=== PATIENT | female | born 1950 | race Caucasian/White ===

== ENCOUNTER 2017-07-24 14:15 | Emergency (ER) | payer MEDICARE ==
[2017-07-24 14:45] VITALS: BP 107/57; PULSE 66; RESP 18; TEMP 98.1; O2SAT 98
--- NOTE | 2017-07-24 14:54 | ED PDOC ---
Upper Extremity Pain/Injury Time Seen by Provider: 07/24/17 14:51 Chief Complaint (Nursing): Upper Extremity Problem/Injury Chief Complaint (Provider): arm pain History Per: Patient Additional Complaint(s): 67-year-old female presents to emergency department with right arm infection. Patient states for 1-1/2 months she has noticed redness and drainage to right elbow region. She denies fever or chills. Patient states that today is the first time she is seeking medical attention for this ongoing issue. She has slight localized pain to affected area not relieved by Aleve. Patient denies any trauma to affected area. PMD: Dr. Osorio Past Medical History Reviewed: Historical Data, Nursing Documentation, Vital Signs Vital Signs: Last Vital Signs Temp 98.1 F 07/24/17 14:40 Pulse 66 07/24/17 14:40 Resp 18 07/24/17 14:40 BP 107/57 L 07/24/17 14:40 Pulse Ox 98 07/24/17 14:40 - Medical History PMH: CAD, CHF, HTN - Family History Family History: States: No Known Family Hx - Living Arrangements Living Arrangements: With Family - Social History Current smoker - smoking cessation education provided: Yes Alcohol: None Drugs: Denies - Home Medications Home Medications: Ambulatory Orders Medication Instructions Recorded Atenolol [Atenolol] 25 mg PO DAILY 10/14/14 Atorvastatin Calcium [Lipitor] 20 mg PO DAILY 10/14/14 Furosemide [Lasix] 20 mg PO DAILY #5 tab 10/14/14 Furosemide [Lasix] 20 mg PO DAILY PRN 10/14/14 Lisinopril [Lisinopril] 10 mg PO DAILY 10/14/14 Omeprazole [Prilosec] 20 mg PO DAILY 10/14/14 Clindamycin [Cleocin] 1 tab PO QID #28 cap 07/24/17 Sulfamethoxazole/Trimethoprim 1 tab PO BID #14 tab 07/24/17 [Bactrim DS 800 mg-160 mg] traMADol [Ultram] 50 mg PO TID PRN #15 tab 07/24/17 - Allergies Allergies/Adverse Reactions: Allergies Allergy/AdvReac Type Severity Reaction Status Date / Time No Known Allergies Allergy Verified 07/24/17 14:44 Review of Systems ROS Statement: Except As Marked, All Systems Reviewed And Found Negative Constitutional: Negative for: Fever, Chills Skin: Positive for: Other (right arm infection) Physical Exam - Reviewed Nursing Documentation Reviewed: Yes Vital Signs Reviewed: Yes - Physical Exam Appears: Positive for: Well, Non-toxic, No Acute Distress Skin: Negative for: Rash Eye Exam: Positive for: Normal appearance Cardiovascular/Chest: Positive for: Regular Rate, Rhythm Respiratory: Positive for: Normal Breath Sounds Extremity: Positive for: Other (Cluster of actively draining superficial abscesses noted to right proximal forearm and elbow region with mild localized erythema, no erythematous streaking, mildly tender to palpation, full range of motion of right elbow, 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 Plan: Initial doses Bactrim and clindamycin provided Tylenol and tramadol given for pain relief Patient given prescriptions for Bactrim, clindamycin and tramadol. Wound care instructions provided. Disposition - Clinical Impression Clinical Impression: Cellulitis, Abscess - Patient ED Disposition Is Patient to be Admitted: No Counseled Patient/Family Regarding: Diagnosis, Need For Followup, Rx Given, Smoking Cessation - Disposition Referrals: Torito Osorio MD [Family Provider] - Disposition: Routine/Home Disposition Time: 15:37 Condition: STABLE Additional Instructions: APPLY WARM COMPRESSES WITH EPSOM SALTS TO AFFECTED AREA OFTEN POSSIBLE. TAKE RX MEDS DIRECTED. WOUND RE-CHECK IN 2 DAYS OR RETURN SOONER IF ACUTELY WORSE. Prescriptions: Clindamycin [Cleocin] 1 tab PO QID #28 cap Sulfamethoxazole/Trimethoprim [Bactrim DS 800 mg-160 mg] 1 tab PO BID #14 tab traMADol [Ultram] 50 mg PO TID PRN #15 tab PRN Reason: Pain, Moderate (4-7) Instructions: Cellulitis (ED), Abscess (ED) Forms: [employer] (Tajik)
[2017-07-24] MEDS ORDERED: Tmp-Smz 800 mg-160 mg DS Tab PO STA (15:06)
[2017-07-24] MEDS ORDERED: Tmp-Smz 800 mg-160 mg DS Tab ONE (15:52)
== END 2017-07-24 16:41 | disposition home or self-care (01) ==
LOC: H.ER 14:15
DX: L02.413 Cutaneous abscess of right upper limb (principal); I11.0 Hypertensive heart disease with heart failure; I25.10 Atherosclerotic heart disease of native coronary artery without angina pectoris

== ENCOUNTER 2017-07-25 19:09 | Emergency (ER) | payer MEDICARE ==
[2017-07-25 20:31] VITALS: BP 103/52; PULSE 63; RESP 16; TEMP 97.5; O2SAT 100
--- NOTE | 2017-07-26 01:38 | ED PDOC ---
HPI: General Adult Time Seen by Provider: 07/25/17 21:33 Chief Complaint (Nursing): Allergic Reaction Chief Complaint (Provider): Reaction to Medication History Per: Patient History/Exam Limitations: no limitations Onset/Duration Of Symptoms: Days (x1) Current Symptoms Are (Timing): Still Present Additional Complaint(s): 67 year old female presents to ED with complaints of a reaction to medication x1 day and was seen yesterday in the ED for cellulitis of the right forearm. Notes that she was discharged with Bactrim and Clindamycin. States that Clindamycin is making her nauseous. (+) vomiting. (-) fever, (-) chills, (-) increase in redness, pain or swelling of right forearm. PCP: Torito Osorio V Past Medical History Reviewed: Historical Data, Nursing Documentation, Vital Signs Vital Signs: Last Vital Signs Temp 97.5 F L 07/25/17 20:25 Pulse 63 07/25/17 20:25 Resp 16 07/25/17 20:25 BP 103/52 L 07/25/17 20:25 Pulse Ox 100 07/26/17 01:46 - Medical History PMH: CAD, CHF, HTN - Family History Family History: States: Unknown Family Hx - Living Arrangements Living Arrangements: With Family - Home Medications Home Medications: Ambulatory Orders Medication Instructions Recorded Atenolol [Atenolol] 25 mg PO DAILY 10/14/14 Atorvastatin Calcium [Lipitor] 20 mg PO DAILY 10/14/14 Furosemide [Lasix] 20 mg PO DAILY #5 tab 10/14/14 Furosemide [Lasix] 20 mg PO DAILY PRN 10/14/14 Lisinopril [Lisinopril] 10 mg PO DAILY 10/14/14 Omeprazole [Prilosec] 20 mg PO DAILY 10/14/14 Clindamycin [Cleocin] 1 tab PO QID #28 cap 07/24/17 Sulfamethoxazole/Trimethoprim 1 tab PO BID #14 tab 07/24/17 [Bactrim DS 800 mg-160 mg] traMADol [Ultram] 50 mg PO TID PRN #15 tab 07/24/17 Cephalexin [Keflex] 500 mg PO Q6 #28 capsule 07/25/17 Ondansetron ODT [Zofran ODT] 4 mg PO DAILY PRN #20 odt 07/25/17 - Allergies Allergies/Adverse Reactions: Allergies Allergy/AdvReac Type Severity Reaction Status Date / Time No Known Allergies Allergy Verified 07/25/17 20:31 Review of Systems ROS Statement: Except As Marked, All Systems Reviewed And Found Negative Constitutional: Negative for: Fever, Chills Gastrointestinal: Positive for: Nausea, Vomiting Musculoskeletal: Negative for: Other ((-) increase in redness or swelling to right forearm) Physical Exam - Reviewed Nursing Documentation Reviewed: Yes Vital Signs Reviewed: Yes - Physical Exam Appears: Positive for: Well, Non-toxic Skin: Positive for: Normal Color, Warm, Dry Respiratory: Negative for: Respiratory Distress Extremity: Positive for: Swelling (area of erythema and edema on medial aspect of right forearm. warm to touch). Negative for: Deformity Neurologic/Psych: Positive for: Alert, Oriented. Negative for: Motor/Sensory Deficits - ECG O2 Sat by Pulse Oximetry: 100 (RA) Pulse Ox Interpretation: Normal Medical Decision Making Medical Decision Making: Doses of Keflex and Zofran given in ED. Advised patient to discontinue Clindamycin and continue Bactrim. Keflex will be prescribed in place of Clindamycin. Dispo: Based on history, exam and diagnostic results plan will be for outpt f/u w/ Dx of cellulitis. Dx of cellulitis d/w the pt. Adult discharge: Advised to follow up with primary care physician in 1-2 days without fail. Advised to take medication as prescribed. Return to the emergency room at any time for any new or worsening symptoms. Patient states she fully agrees with and understands discharge instructions. States that she agrees with the plan and disposition. Verbalized and repeated discharge instructions and plan. I have given the patient opportunity to ask any additional questions. Scribe Attestation: Documented by Sdyni Allen acting as a scribe for Bibiana Oconnell PA-C. Scribe Attestation: All medical record entries made by the Scribe were at my direction and personally dictated by me. I have reviewed the chart and agree that the record accurately reflects my personal performance of the history, physical exam, medical decision making, and the department course for this patient. I have also personally directed, reviewed, and agree with the discharge instructions and disposition. Disposition - Clinical Impression Clinical Impression: Cellulitis - Patient ED Disposition Is Patient to be Admitted: No Counseled Patient/Family Regarding: Diagnosis, Need For Followup, Rx Given - Disposition Disposition: Routine/Home Disposition Time: 22:09 Condition: STABLE Additional Instructions: Thank you for letting us take care of you today. You were treated for cellulitis. The emergency medical care you received today was directed at your acute symptoms. If you were prescribed any medication, please fill it and take as directed. It may take several days for your symptoms to resolve. Return to the Emergency Department if your symptoms worsen, do not improve, or if you have any other problems. Please contact your doctor in 2 days for re-evaluation and follow up. Bring any paperwork you were given at discharge with you along with any medications you are taking to your follow up visit. Our treatment cannot replace ongoing medical care by a primary care provider (PCP) outside of the emergency department. Thank you for allowing the [facility] team to be part of your care today. Prescriptions: Cephalexin [Keflex] 500 mg PO Q6 #28 capsule Ondansetron ODT [Zofran ODT] 4 mg PO DAILY PRN #20 odt PRN Reason: Nausea/Vomiting Instructions: Cellulitis (ED) Forms: [employer] (Serbian) - PA / SENIOR CARE ASSISTANT / Resident Statement MD/DO has reviewed & agrees with the documentation as recorded.
== END 2017-07-25 22:46 | disposition home or self-care (01) ==
LOC: H.ER 19:09
DX: T78.40XA Allergy, unspecified, initial encounter (principal); L03.113 Cellulitis of right upper limb

== ENCOUNTER 2017-08-05 10:47 | Emergency (ER) | payer MEDICARE ==
[2017-08-05 11:15] VITALS: TEMP 97
[2017-08-05] MEDS ORDERED: Piperacillin/Tazobact 3.375 GM in Sodium Chloride 0.9% 100 ML IVPB STA (11:22)
--- NOTE | 2017-08-05 11:33 | ED PDOC ---
HPI: General Adult Time Seen by Provider: 08/05/17 11:09 Chief Complaint (Nursing): Abnormal Skin Integrity History Per: Patient Additional Complaint(s): Pt. states ~2 months she's had pain, redness, and discharge from the R forearm. States that she is uncertain as to how she obtained the wound. She was seen in ED on 07/24/17 and prescribed Bactrim and Clindamycin. The following day she returned to ED as the Clindamycin caused her to be nauseous. Pt. states she was prescribed Keflex and finished today. Reports discharge is still present but has decreased along with erythema and swelling. Pt. is concerned she may need more antibiotics. Of note, pt. also stopped taking Bactrim. Denies fever, chest pain, SOB, palpitations, trauma, numbness, tingling. Past Medical History Reviewed: Historical Data, Nursing Documentation, Vital Signs Vital Signs: Last Vital Signs Temp 97 F L 08/05/17 11:11 Pulse 60 08/05/17 12:29 Resp 18 08/05/17 11:11 BP 105/67 08/05/17 11:11 Pulse Ox 97 08/05/17 12:29 - Medical History PMH: CAD, CHF, HTN - Family History Family History: States: No Known Family Hx - Home Medications Home Medications: Ambulatory Orders Medication Instructions Recorded Atenolol [Atenolol] 25 mg PO DAILY 10/14/14 Atorvastatin Calcium [Lipitor] 20 mg PO DAILY 10/14/14 Furosemide [Lasix] 20 mg PO DAILY #5 tab 10/14/14 Furosemide [Lasix] 20 mg PO DAILY PRN 10/14/14 Lisinopril [Lisinopril] 10 mg PO DAILY 10/14/14 Omeprazole [Prilosec] 20 mg PO DAILY 10/14/14 Clindamycin [Cleocin] 1 tab PO QID #28 cap 07/24/17 Sulfamethoxazole/Trimethoprim 1 tab PO BID #14 tab 07/24/17 [Bactrim DS 800 mg-160 mg] traMADol [Ultram] 50 mg PO TID PRN #15 tab 07/24/17 Cephalexin [Keflex] 500 mg PO Q6 #28 capsule 07/25/17 Ondansetron ODT [Zofran ODT] 4 mg PO DAILY PRN #20 odt 07/25/17 Doxycycline Hyclate [Doryx] 100 mg PO BID #14 cap 08/05/17 - Allergies Allergies/Adverse Reactions: Allergies Allergy/AdvReac Type Severity Reaction Status Date / Time No Known Allergies Allergy Verified 08/05/17 11:11 Review of Systems ROS Statement: Except As Marked, All Systems Reviewed And Found Negative Musculoskeletal: Positive for: Arm Pain Physical Exam - Physical Exam Appears: Positive for: Well, Non-toxic, No Acute Distress Skin: Positive for: Normal Color, Warm. Negative for: Rash Pulses-Radial (L): 2+ Pulses-Radial (R): 2+ Extremity: Positive for: Other (R posterior forearm with small draining wound; dry yellow discharge noted; faint erythema surrounding wound (imporved as per patient)) - Laboratory Results Result Diagrams: 08/05/17 11:42 08/05/17 11:42 - ECG ECG: Positive for: Interpreted By Me ECG Rhythm: Positive for: Sinus Rhythm. Negative for: ST/T Changes Rate: 60 O2 Sat by Pulse Oximetry: 97 - Radiology X-Ray: Interpreted by Me (R forearm x-ray) X-Ray Interpretation: No Acute Disease - Progress ED Course And Treament: Labs ordered. Zosyn IV, Vancomycin IV, R forearm x-ray, EKG ordered. 1225 Case d/w Dr. Crabtree who recommends CT of extremity to r/o abscess CT of R forearm IV contrast ordered. 1425 CT RUE w/ IV contrast: No abscess As per Dr. Crabtree, pt. can be dc'd with Rx for Doxycycline. Disposition - Clinical Impression Clinical Impression: Visit for wound check, Cellulitis - Patient ED Disposition Is Patient to be Admitted: No - Disposition Referrals: [facility] [Outside] Disposition: Routine/Home Disposition Time: 14:27 Condition: STABLE Additional Instructions: Follow up with [facility] in 2 days for wound check. Prescriptions: Doxycycline Hyclate [Doryx] 100 mg PO BID #14 cap Instructions: Wound Care (DC) Forms: [employer] (Bulgarian) Print Language: HONDURAN
[2017-08-05 11:56] LABS: BASO # 0.1 K/uL (0.0-0.2); BASO % 1.2 % (0.0-2.0); EOS # 0.8 K/uL (0.0-0.7); EOS % 7.3 % (0.0-4.0); HEMOGLOBIN 11.3 g/dL (12.0-16.0); LYMPH # 1.7 K/uL (1.0-4.3); MEAN CORPUSCULAR HEMOGLOBIN 31.4 pg (27.0-31.0); MEAN CORPUSCULAR HGB CONC 33.8 g/dL (33.0-37.0); MEAN PLATELET VOLUME 7.6 fl (7.2-11.7); MONO # 0.9 K/uL (0.0-0.8); MONO % 8.1 % (0.0-10.0); NEUT # 7.2 K/uL (1.8-7.0); NEUT % 67.4 % (50.0-75.0); NRBC % 0.1 % (0.0-0.0); RBC 3.6 Mil/uL (3.80-5.20); RED CELL DISTRIBUTION WIDTH 13.4 % (11.5-14.5); WHITE BLOOD COUNT 10.7 K/uL (4.8-10.8)
[2017-08-05] MEDS ORDERED: Piperacillin/Tazobact 3.375 gm Inj IVPB ONE (11:56)
[2017-08-05 11:57] LABS: VENOUS BLOOD GAS BASE EXCESS 7.3 mmol/L (0.0-2.0); VENOUS BLOOD GAS PCO2 45 mmHg (40-60); VENOUS BLOOD GAS PO2 23 mm/Hg (30-55); VENOUS BLOOD PH 7.46 (7.32-7.43)
[2017-08-05 12:08] LABS: ALB/GLOB RATIO 1.1 (1.0-2.1); ALBUMIN 3.8 g/dL (3.5-5.0); ALT/SGPT 26 U/L (9-52); AST/SGOT 45 U/L (14-36); BLOOD UREA NITROGEN 20 mg/dl (7-17); CALCIUM 9.6 mg/dL (8.4-10.2); GFR AFRICAN-AMERICAN > 60; GFR NON-AFRICAN AMERICAN 56
--- NOTE | 2017-08-05 12:15 | RAD ---
PROCEDURE: Radiographs of the Right Forearm HISTORY: pain COMPARISON: None available. TECHNIQUE: Frontal and lateral views obtained. FINDINGS: BONES: There is no acute displaced fracture or bone destruction. Bone alignment is normal. There is diffuse bone demineralization. JOINT SPACES: Unremarkable. OTHER FINDINGS: There are linear discrete calcifications in the dorsal soft tissues of the forearm and there are periarticular soft tissues in the elbow and wrist joint. IMPRESSION: No acute fracture or dislocation. Sheet like calcifications in the dorsal soft tissues of the forearm and periarticular soft tissue calcifications in the elbow and wrist joints. Findings could be related to dermatomyositis. Clinical correlation and follow-up is advised.
--- NOTE | 2017-08-05 14:20 | CT ---
PROCEDURE: Right Forearm CT without contrast HISTORY: ATTENTION R forearm COMPARISON: Right forearm radiographs 08/05/2017. TECHNIQUE: A volumetric CT acquisition through the right forearm was performed without intravenous contrast as requested. Reformatted datasets provided using sagittal axial and coronal technique. Radiation dose: Total exam DLP = 254.63 mGy-cm. This CT exam was performed using one or more of the following dose reduction techniques: Automated exposure control, adjustment of the mA and/or kV according to patient size, and/or use of iterative reconstruction technique. FINDINGS: No fracture or dislocation is appreciated on acute basis. A chronic healed fracture of the distal radius is appreciated with limited deformity identified. No subluxation identified. Diffuse osteopenia suggests osteoporosis. Evaluation of soft tissues reveals prominent heterotopic calcification at the dorsal greater than proximal volar soft tissues, particularly dorsal lateral to the right radius. Even more prominent soft tissue calcification is appreciated lateral to the wrist and distal right radius. Prominent soft tissue calcifications overlying the olecranon process extending cephalad to involve distal triceps tendon region as well. Consider probable inflammatory process chronic basis including potential enthesiopathy or autoimmune disorder. IMPRESSION: No acute fracture or dislocation identified. Chronic healed fracture distal right radius is appreciated with deformity as discussed above. Soft tissue calcifications are identified as distributed throughout the right forearm wrist and elbow. Consider possible enthesiopathy or other inflammatory process including autoimmune process.
[2017-08-05 15:25] VITALS: BP 130/72; PULSE 63; RESP 16; O2SAT 100
--- NOTE | 2017-08-05 21:17 | CARD ---
APPROVED REPORT EKG Measurement Heart [id number] MD [id number] <Conclusion> Normal sinus rhythm Lateral infarct, age undetermined Inferior-posterior infarct, age undetermined Abnormal ECG
== END 2017-08-05 15:31 | disposition home or self-care (01) ==
LOC: H.ER 10:47
DX: L03.113 Cellulitis of right upper limb (principal); I11.0 Hypertensive heart disease with heart failure; I25.10 Atherosclerotic heart disease of native coronary artery without angina pectoris
CPT/HCPCS: 73090; 73201; 80053; 82803; 85025; 87040; 87070; 93005; 96365; 96367; 99284; J2543; Q9967

== ENCOUNTER 2018-06-18 16:15 | Emergency (ER) | payer MEDICARE ==
[2018-06-18] MEDS ORDERED: Lidocaine 1% Inj (20ml) ONE (18:30)
--- NOTE | 2018-06-18 18:34 | ED PDOC ---
Upper Extremity Pain/Injury Time Seen by Provider: 06/18/18 18:25 Chief Complaint (Nursing): Finger,Hand,&Wrist Chief Complaint (Provider): Right Hand Pain History Per: Patient History/Exam Limitations: no limitations Onset/Duration Of Symptoms: Days Current Symptoms Are (Timing): Still Present Quality: "Pain" Additional Complaint(s): 68 year old female presents to the ED for an evaluation of infection to the 4th digit of her right hand. She states she banged her hand while washing dishes. Her fingernail is swollen and yellow. PMD: Non CPH Provider Past Medical History Reviewed: Historical Data, Nursing Documentation, Vital Signs - Medical History PMH: CAD, CHF, HTN - Family History Family History: States: Unknown Family Hx - Home Medications Home Medications: Ambulatory Orders Medication Instructions Recorded Atenolol 25 mg PO DAILY 10/14/14 Atorvastatin Calcium [Lipitor] 20 mg PO DAILY 10/14/14 Furosemide [Lasix] 20 mg PO DAILY #5 tab 10/14/14 Furosemide [Lasix] 20 mg PO DAILY PRN 10/14/14 Lisinopril 10 mg PO DAILY 10/14/14 Omeprazole [Prilosec] 20 mg PO DAILY 10/14/14 Clindamycin [Cleocin] 1 tab PO QID #28 cap 07/24/17 Sulfamethoxazole/Trimethoprim 1 tab PO BID #14 tab 07/24/17 [Bactrim DS 800 mg-160 mg] traMADol [Ultram] 50 mg PO TID PRN #15 tab 07/24/17 Cephalexin [Keflex] 500 mg PO Q6 #28 capsule 07/25/17 Ondansetron ODT [Zofran ODT] 4 mg PO DAILY PRN #20 odt 07/25/17 Doxycycline Hyclate [Doryx] 100 mg PO BID #14 cap 08/05/17 Ondansetron ODT [Zofran ODT] 4 mg PO TID #20 odt 08/05/17 oxyCODONE/Acetaminophen [Percocet 1 ea PO DAILY #2 tab 06/18/18 5/325 mg Tab] - Allergies Allergies/Adverse Reactions: Allergies Allergy/AdvReac Type Severity Reaction Status Date / Time No Known Allergies Allergy Verified 08/05/17 11:11 Review of Systems ROS Statement: Except As Marked, All Systems Reviewed And Found Negative Constitutional: Negative for: Fever, Chills Musculoskeletal: Positive for: Hand Pain (right ) Neurological: Negative for: Weakness, Numbness Physical Exam - Reviewed Nursing Documentation Reviewed: Yes Vital Signs Reviewed: Yes - Physical Exam Appears: Positive for: Well, Non-toxic, No Acute Distress Head Exam: Positive for: ATRAUMATIC, NORMAL INSPECTION, NORMOCEPHALIC Skin: Positive for: Normal Color, Warm, Dry. Negative for: Rash Cardiovascular/Chest: Positive for: Regular Rate, Rhythm. Negative for: Murmur Respiratory: Positive for: Normal Breath Sounds. Negative for: Decreased Breath Sounds, Wheezing, Respiratory Distress Extremity: Positive for: Swelling (on right 4th digit ), Other (On 4th digit of right hand, there is infection under the nail onto the nailbed, no tenderness over affected tendon, finger is not held in passive flexion ) Neurologic/Psych: Positive for: Alert, Oriented (x3) - ECG Pulse Ox Interpretation: Normal Medical Decision Making Medical Decision Making: Time: 1835 Initial Plan: Motrin 600mg Acetaminophen 650mg Reevaluation PROCEDURE: DIGITAL BLOCK Performed by the emergency provider Location: right 4th digit Preparation: The area was prepped and cleansed Procedure: 4cc lidocaine for digital block on right 4th digit to remove nail Post-Procedure: The patient tolerated the procedure well, and there were no complications. ----- Scribe Attestation: Documented by Giacomo Mendoza, acting as a scribe for Bossman Rowley PA-C. Provider Scribe Attestation: All medical record entries made by the Scribe were at my direction and personally dictated by me. I have reviewed the chart and agree that the record accurately reflects my personal performance of the history, physical exam, medical decision making, and the department course for this patient. I have also personally directed, reviewed, and agree with the discharge instructions and disposition. Disposition - Clinical Impression Clinical Impression: Finger infection - Patient ED Disposition Is Patient to be Admitted: No Doctor Will See Patient In The: Office Counseled Patient/Family Regarding: Studies Performed, Diagnosis, Need For Followup, Rx Given - Disposition Disposition: Routine/Home Disposition Time: 20:05 Condition: STABLE Additional Instructions: Follow up with your primary PMD in 4-5 days Take all medcation Keep wound clean and dry -- use mild soap and water to cleabn Take all antibiotics Return to ED in event of red streaking on affected hand or arm or fever > 100F Prescriptions: oxyCODONE/Acetaminophen [Percocet 5/325 mg Tab] 1 ea PO DAILY #2 tab Instructions: Wound Infection Forms: [employer] (Urdu)
[2018-06-18] MEDS ORDERED: Povidone Iodine Topical 10% Sol ONE (19:08)
[2018-06-18] MEDS ORDERED: Tmp-Smz 800 mg-160 mg DS Tab PO STA (19:25)
[2018-06-18] MEDS ORDERED: Bacitracin 500 Units/gm Oint Foilpak UD ONE (20:11)
[2018-06-18 20:18] VITALS: BP 126/85; PULSE 61; RESP 19; O2SAT 100
== END 2018-06-18 20:17 | disposition home or self-care (01) ==
LOC: H.ER 16:15
DX: L03.012 Cellulitis of left finger (principal)

== ENCOUNTER 2018-07-14 14:53 | Inpatient (IN) | payer MEDICARE ==
[2018-07-14 14:57] VITALS: BMI 18.1
--- NOTE | 2018-07-14 16:18 | ED PDOC ---
HPI: Wound Care - HPI Time Seen by Provider: 07/14/18 15:17 Chief Complaint (Nursing): Abnormal Skin Integrity Chief Complaint (Provider): Wound Care History Per: Patient Exam Limitations: no limitations Onset/Duration Of Symptoms: Days Current Symptoms Are (Timing): Still Present Additional Complaint(s): 68 y/o female with a PMHx of CHF presents to the ED after being sent here by Dr. Boateng for further evaluation of a wound. Patient reports of injuring her finger and being seen here on June 18, 2018. Patient states her fingernail was r emoved but never healed. Patient reports of finishing two courses of two unknown antibiotics without resolution. PMD: Fortunato Boateng Past Medical History Reviewed: Historical Data, Nursing Documentation, Vital Signs Vital Signs: Last Vital Signs Temp 97.8 F 07/14/18 14:57 Pulse 67 07/14/18 14:57 Resp 17 07/14/18 14:57 BP 103/64 07/14/18 14:57 Pulse Ox - Medical History PMH: CAD, CHF, HTN - Surgical History Surgical History: No Surg Hx - Family History Family History: States: Unknown Family Hx - Social History Current smoker - smoking cessation education provided: No - Home Medications Home Medications: Ambulatory Orders Medication Instructions Recorded Atorvastatin Calcium [Lipitor] 20 mg PO DAILY 10/14/14 Alprazolam [Xanax] 0.5 mg PO Q12 PRN 07/14/18 Multivitamin [Multi-Vitamin Daily] 1 tab PO DAILY 07/14/18 Sertraline [Zoloft] 50 mg PO HS 07/14/18 Aspirin [Aspirin Chewable] 81 mg PO DAILY #30 chew 07/18/18 Atorvastatin [Lipitor] 20 mg PO DAILY #30 tab 07/18/18 Furosemide [Lasix] 20 mg PO DAILY #30 tab 07/18/18 Losartan [Cozaar] 50 mg PO DAILY #30 tab 07/18/18 Metoprolol Succinate XL [Toprol XL] 25 mg PO DAILY #30 tab 07/18/18 Sulfamethoxazole/Trimethoprim 1 tab PO Q12 #28 tab 07/18/18 [Bactrim DS 800 mg-160 mg] oxyCODONE/Acetaminophen [Percocet 1 ea PO Q4 #30 tab 07/18/18 5/325 mg Tab] - Allergies Allergies/Adverse Reactions: Allergies Allergy/AdvReac Type Severity Reaction Status Date / Time No Known Allergies Allergy Verified 07/14/18 15:01 Review of Systems ROS Statement: Except As Marked, All Systems Reviewed And Found Negative Musculoskeletal: Positive for: Hand Pain (4th Finger Wound Care) Physical Exam - Reviewed Nursing Documentation Reviewed: Yes Vital Signs Reviewed: Yes - Physical Exam Appears: Positive for: Uncomfortable Extremity: Positive for: Tenderness (to palpation of the distal finger), Other (necrosis distal digits. no edema). Negative for: Normal ROM (Decreased ROM secondary to pain. ) - Laboratory Results Result Diagrams: 07/17/18 06:50 07/17/18 06:50 Medical Decision Making Medical Decision Making: Time: 152 Plan: -- CMP -- CBC with Differentials -- PTT -- Prothrombin Time -- Blood Culture Time: 155 Plan: -- Hand Right 3 Viwes XR Time: 1612 Plan: -- Vancomycin Inj 1 gm Sodium Chloride 0.9% 250 ml IVPB Scribe Attestation: Documented by Izaiah Kincaid, acting as a scribe for Luana Muller MD. Provider Scribe Attestation: All medical record entries made by the Scribe were at my direction and personally dictated by me. I have reviewed the chart and agree that the record accurately reflects my personal performance of the history, physical exam, medical decision making, and the department course for this patient. I have also personally directed, reviewed, and agree with the discharge instructions and disposition. Disposition - Clinical Impression Clinical Impression: Finger necrosis - Patient ED Disposition Is Patient to be Admitted: Yes - Disposition Disposition Time: 16:25 Condition: STABLE - Pt Status Changed To: Hospital Disposition Of: Inpatient - Admit Certification Admit to Inpatient:: After my assessment, the patient will require hospitalization for at least two midnights. This is because of the severity of symptoms shown, intensity of services needed, and/or the medical risk in this patient being treated as an outpatient. - POA Present On Arrival: None
--- NOTE | 2018-07-14 16:21 | CP.PCM.HP ---
<Shawna Marquez - Last Filed: 07/15/18 07:31> History of Present Illness - History of Present Illness History of Present Illness: CC: Right Finger Pain with wound HPI: 68 y/o female patient was seen and evaluated at bedside for infected right 4th digit wound with necrosis. Patient reports injuring her finger while washing the dishes, and was first seen in the ED on 06/18/18. Patient reports her fingernail was removed, however, the wound has not healed since. Patient saw PMD Dr. Boateng, and was prescribed outpatient PO Abx, patient cannot recall name. Patient reports she failed outpatient therapy, and was sent by Dr. Boateng for admission for further workup. PMD: Dr. Boateng PMHx: CHF, CAD, HTN PSHx: denied by patient Family Hx: unknown family hx Social hx: unknown smoking history ED Course: -- CMP -- CBC with Differentials -- PTT -- Prothrombin Time -- Blood Culture -- Hand X-ray Right 3 Views XR -- Vancomycin Inj 1 gm -- Sodium Chloride 0.9% 250 ml IVPB Present on Admission - Present on Admission Any Indicators Present on Admission: Yes Review of Systems - Constitutional Constitutional: Chills, Malaise, Weakness. absent: Fever - EENT Eyes: absent: Blurred Vision, Change in Vision - Cardiovascular Cardiovascular: absent: Chest Pain, Chest Pain at Rest, Chest Pain with Activity, Dyspnea on Exertion - Respiratory Respiratory: absent: Dyspnea, Dyspnea on Exertion, Wheezing - Gastrointestinal Gastrointestinal: absent: Abdominal Pain, Constipation, Diarrhea - Musculoskeletal Musculoskeletal: Limited Range of Motion, Stiffness - Integumentary Integumentary: Wounds - Neurological Neurological: absent: Numbness, Tingling Past Patient History - Past Social History Smoking Status: Unknown If Ever Smoked - CARDIAC Hx Congestive Heart Failure: Yes Hx Hypertension: Yes - PSYCHIATRIC Hx Substance Use: No - SURGICAL HISTORY Hx Surgeries: No - ANESTHESIA Hx Anesthesia: Yes Meds Allergies/Adverse Reactions: Allergies Allergy/AdvReac Type Severity Reaction Status Date / Time No Known Allergies Allergy Verified 07/14/18 15:01 Physical Exam - Constitutional Appears: Well, Non-toxic, No Acute Distress - Head Exam Head Exam: ATRAUMATIC, NORMOCEPHALIC - Eye Exam Eye Exam: Normal appearance - ENT Exam ENT Exam: Mucous Membranes Dry - Respiratory Exam Respiratory Exam: Decreased Breath Sounds, NORMAL BREATHING PATTERN. absent: Rales, Rhonchi, Wheezes - Cardiovascular Exam Cardiovascular Exam: REGULAR RHYTHM, +S1, +S2 - GI/Abdominal Exam GI & Abdominal Exam: Normal Bowel Sounds, Soft. absent: Distended, Firm, Guarding - Rectal Exam Rectal Exam: Deferred - Extremities Exam Extremities exam: Positive for: joint swelling, tenderness Additional comments: right 4th digit wound with necrosis at the tip, fluctuance noted, no drainage - Neurological Exam Neurological exam: Alert, Oriented x3 - Skin Skin Exam: Dry, Pallor Results - Vital Signs Recent Vital Signs: Last Vital Signs Temp 97.8 F 07/14/18 14:57 Pulse 67 07/14/18 14:57 Resp 17 07/14/18 14:57 BP 103/64 07/14/18 14:57 Pulse Ox - Labs Result Diagrams: 07/15/18 06:00 07/15/18 06:00 Assessment & Plan - Assessment and Plan (Free Text) Assessment: 68 y/o female patient with PMHx of CAD, HTN and CHF seen and evaluated for a right 4th digit finger abscess and necrosis. Patient admitted for IV Abx and surgical workup Plan: Right 4th digit finger abscess and necrosis - acute, symptomatic - Afebrile, WBC of 10.6 - Right Hand X-ray: Pending final read - F/U CBC/BMP - F/U Blood Cultures - F/U CXR/EKG - started on Vancomycin 1 gm IV - Pain control - Surgical consult, Dr. Miller- patient NPO after midnight for OR tomorrow HTN - chronic, asymptomatic - continue with home meds CAD - chronic, asymptomatic - continue with home meds CHF - chronic, asymptomatic - continue with home meds DVT Prophylaxis - SCDs for now ? Hx of Depression/Anxiety - asymptomatic - Sertraline, Xanax Diet - NPO Diet after midnight <Leanna Zurita - Last Filed: 07/16/18 20:41> Results - Vital Signs Recent Vital Signs: Last Vital Signs Temp 97.5 F L 07/16/18 16:33 Pulse 59 L 07/16/18 16:33 Resp 20 07/16/18 16:33 BP 130/73 07/16/18 16:33 Pulse Ox 96 07/16/18 16:33 - Labs Result Diagrams: 07/16/18 06:05 07/16/18 06:05 Labs: Laboratory Results - last 24 hr 07/15/18 07/15/18 07/16/18 09:35 21:00 05:40 WBC RBC Hgb Hct MCV MCH MCHC RDW Plt Count Sodium Potassium Chloride Carbon Dioxide Anion Gap BUN Creatinine Est GFR ( Amer) Est GFR (Non-Af Amer) Random Glucose Calcium Vancomycin Trough 23.8 H Double Strand DNA Ab <1 HIV 1&2 Antibody Screen Negative 07/16/18 07/16/18 06:05 06:05 WBC 10.2 RBC 3.75 L Hgb 11.9 L Hct 35.8 MCV 95.6 D MCH 31.8 H MCHC 33.2 RDW 14.7 H Plt Count 214 Sodium 137 Potassium 4.4 Chloride 103 Carbon Dioxide 23 Anion Gap 15 BUN 29 H Creatinine 1.0 Est GFR ( Amer) > 60 Est GFR (Non-Af Amer) 55 Random Glucose 96 Calcium 8.7 Vancomycin Trough Double Strand DNA Ab HIV 1&2 Antibody Screen Attending/Attestation - Attestation I have personally seen and examined this patient.: Yes I have fully participated in the care of the patient.: Yes I have reviewed all pertinent clinical information: Yes
[2018-07-14] MEDS ORDERED: Morphine 4 MG/ML VIAL IV STA (16:32)
[2018-07-14 16:34] LABS: BASO # 0.1 K/uL (0.0-0.2); BASO % 0.9 % (0.0-2.0); EOS # 0.4 K/uL (0.0-0.7); EOS % 3.5 % (0.0-4.0); HEMOGLOBIN 12.1 g/dL (12.0-16.0); LYMPH # 1.5 K/uL (1.0-4.3); LYMPH % 13.8 % (20.0-40.0); MEAN CELL VOLUME 93.3 fl (81.0-99.0); MEAN CORPUSCULAR HEMOGLOBIN 31.7 pg (27.0-31.0); MEAN PLATELET VOLUME 8.7 fl (7.2-11.7); MONO # 0.7 K/uL (0.0-0.8); MONO % 6.4 % (0.0-10.0); NEUT % 75.4 % (50.0-75.0); RBC 3.83 Mil/uL (3.80-5.20); RED CELL DISTRIBUTION WIDTH 14.6 % (11.5-14.5); WHITE BLOOD COUNT 10.6 K/uL (4.8-10.8)
[2018-07-14 16:36] LABS: INR 1.2; PROTHROMBIN TIME 13.7 Seconds (9.8-13.1)
[2018-07-14 16:41] LABS: ALBUMIN 3.6 g/dL (3.5-5.0); CALCIUM 9.5 mg/dL (8.4-10.2)
[2018-07-14] MEDS ORDERED: Potassium Chloride 20 mEq ER Tab PO STA (16:48)
--- NOTE | 2018-07-14 16:54 | CP.PCM.CON ---
History of Present Illness - History of Present Illness History of Present Illness: SURGERY CONSULT NOTE FOR DR. GOINS Reason: finger necrosis 68F presents with right 4th digit necrosis and pain that began 3 weeks ago. Patient had a nail removal at the site in the ED from an infection. She states the infection as not gotten better and the pain continues. She denies fevers or chills, denies any purulent drainage. Denies loss of sensation and loss of motor function PMH: CHF PSH: denies Past Patient History - Past Social History Smoking Status: Unknown If Ever Smoked - CARDIAC Hx Congestive Heart Failure: Yes Hx Hypertension: Yes - PSYCHIATRIC Hx Substance Use: No - SURGICAL HISTORY Hx Surgeries: No - ANESTHESIA Hx Anesthesia: Yes Meds Allergies/Adverse Reactions: Allergies Allergy/AdvReac Type Severity Reaction Status Date / Time No Known Allergies Allergy Verified 07/14/18 15:01 - Medications Medications: Current Medications Vancomycin HCl 1 gm/ Sodium (Chloride) 250 mls @ 166.667 mls/hr IVPB STAT STA; Protocol Stop: 07/14/18 17:41 Potassium Chloride (K-Dur 20 Meq Er Tab) 20 meq PO STAT STA Stop: 07/14/18 16:49 Physical Exam - Constitutional Appears: Non-toxic, No Acute Distress - Eye Exam Eye Exam: EOMI, PERRL - ENT Exam ENT Exam: Mucous Membranes Moist - Respiratory Exam Respiratory Exam: Clear to Auscultation Bilateral, NORMAL BREATHING PATTERN - Cardiovascular Exam Cardiovascular Exam: REGULAR RHYTHM, +S1, +S2 - GI/Abdominal Exam GI & Abdominal Exam: Soft. absent: Distended, Firm, Guarding, Rebound, Rigid, Tenderness - Extremities Exam Additional comments: right 4th digit at the tip is necrotic, fluctuance is palpable, erythema is vi sualized., moves digits - Neurological Exam Neurological exam: Alert, Oriented x3 - Psychiatric Exam Psychiatric exam: Normal Affect, Normal Mood - Skin Skin Exam: Dry, Intact, Normal Color, Warm Results - Vital Signs Recent Vital Signs: Last Vital Signs Temp 97.8 F 07/14/18 14:57 Pulse 67 07/14/18 14:57 Resp 17 07/14/18 14:57 BP 103/64 07/14/18 14:57 Pulse Ox - Labs Result Diagrams: 07/14/18 16:16 07/14/18 16:16 Labs: Laboratory Results - last 24 hr 07/14/18 07/14/18 07/14/18 16:16 16:16 16:16 WBC 10.6 RBC 3.83 Hgb 12.1 Hct 35.8 MCV 93.3 MCH 31.7 H MCHC 34.0 RDW 14.6 H Plt Count 248 MPV 8.7 Neut % (Auto) 75.4 H Lymph % (Auto) 13.8 L [place] % (Auto) 6.4 Eos % (Auto) 3.5 Baso % (Auto) 0.9 Neut # (Auto) 8.0 H Lymph # (Auto) 1.5 [place] # (Auto) 0.7 Eos # (Auto) 0.4 Baso # (Auto) 0.1 PT 13.7 H INR 1.2 APTT 46.0 H Sodium 138 Potassium 3.3 L Chloride 99 Carbon Dioxide 26 Anion Gap 16 BUN 38 H Creatinine 1.2 Est GFR ( Amer) 54 Est GFR (Non-Af Amer) 45 Random Glucose 98 Calcium 9.5 Total Bilirubin 0.6 AST 43 H ALT 31 Alkaline Phosphatase 105 Total Protein 7.1 Albumin 3.6 Globulin 3.5 Albumin/Globulin Ratio 1.0 Assessment & Plan - Assessment and Plan (Free Text) Assessment: 68F with right 4th digit finger abscess and necrosis Plan: - Pre-op for tomorrow - NPO after midnight - Antibiotics - OR tomorrow Discussed with Dr. Angela Ford, PGY3
[2018-07-14] MEDS ORDERED: Lactated Ringer's 1,000 ML IV SCH (17:00)
[2018-07-14] MEDS ORDERED: Potassium Chloride 20 mEq ER Tab PO ONE (17:03)
[2018-07-14] MEDS ORDERED: Vancomycin 1 g Inj ONE (17:03)
--- NOTE | 2018-07-14 18:01 | RAD ---
PROCEDURE: Right Hand Radiographs. HISTORY: 4th digit necrosis COMPARISON: None. FINDINGS: BONES: Bony resorption noted distal jennifer primarily the 4th to a lesser extent 2nd digits. There are degenerative changes and juxta-articular calcifications. Similar findings are seen about the wrist. There is evidence of old trauma radius and radial carpal region. The overall appearance of the osseous, articular and soft tissue findings suggest scleroderma. JOINTS: Severe degenerative change SOFT TISSUES: Soft tissue swelling and air within the soft tissues distal tuft region 4th digit. The areas in the subungual space. No visualized radiopaque foreign body. OTHER FINDINGS: None. IMPRESSION: Focal soft tissue swelling, air within the subungual space 4th digit. Bony resorption identified at this and other levels. Underlying findings are likely scleroderma.
--- NOTE | 2018-07-14 18:02 | RAD ---
Date of service: 07/14/2018 PROCEDURE: CHEST RADIOGRAPH, 1 VIEW HISTORY: Admission COMPARISON: 10/14/2014. FINDINGS: LUNGS: Clear. PLEURA: No pneumothorax or pleural fluid seen. CARDIOVASCULAR: Atherosclerotic calcifications identified primarily aortic arch. No radiographic findings to suggest acute or significant cardiovascular disease. OSSEOUS STRUCTURES: No significant abnormalities. VISUALIZED UPPER ABDOMEN: Normal. OTHER FINDINGS: None. IMPRESSION: No active disease. No acute/significant interval changes.
[2018-07-14] MEDS: Morphine 4 MG/ML VIAL IVP PRN (21:12)
[2018-07-14] MEDS: Potassium Ch 20mEq in D5-1/2NS 1,000 ML IV SCH (21:13)
[2018-07-15] MEDS: Morphine 4 MG/ML VIAL IVP PRN ×2 (01:40→05:23)
[2018-07-15] MEDS: Potassium Ch 20mEq in D5-1/2NS 1,000 ML IV SCH ×3 (04:28→22:50)
[2018-07-15 06:14] LABS: BASO # 0.1 K/uL (0.0-0.2); BASO % 0.5 % (0.0-2.0); EOS # 0.8 K/uL (0.0-0.7); EOS % 5.9 % (0.0-4.0); HEMOGLOBIN 13.1 g/dL (12.0-16.0); LYMPH # 2.7 K/uL (1.0-4.3); LYMPH % 19.8 % (20.0-40.0); MEAN CELL VOLUME 93.5 fl (81.0-99.0); MEAN CORPUSCULAR HEMOGLOBIN 31.3 pg (27.0-31.0); MEAN CORPUSCULAR HGB CONC 33.5 g/dL (33.0-37.0); MEAN PLATELET VOLUME 8.7 fl (7.2-11.7); MONO % 7.5 % (0.0-10.0); NEUT % 66.3 % (50.0-75.0); RBC 4.2 Mil/uL (3.80-5.20); RED CELL DISTRIBUTION WIDTH 14.7 % (11.5-14.5); WHITE BLOOD COUNT 13.6 K/uL (4.8-10.8)
[2018-07-15 06:32] LABS: ALBUMIN 3.7 g/dL (3.5-5.0); ALT/SGPT 34 U/L (9-52); AST/SGOT 42 U/L (14-36); BLOOD UREA NITROGEN 34 mg/dl (7-17); CALCIUM 9.2 mg/dL (8.4-10.2); GFR NON-AFRICAN AMERICAN 55
--- NOTE | 2018-07-15 08:01 | CP.PCM.PN ---
Subjective - Date & Time of Evaluation Date of Evaluation: 07/15/18 Time of Evaluation: 07:59 - Subjective Subjective: SURGERY NOTE FOR DR. GOINS 68F seen and examined at bedside. Patient continues to complain of digit tenderness, denies fevers or chills, denies loss of sensation and motor dysfunction. Objective - Vital Signs/Intake and Output Vital Signs (last 24 hours): Temp Pulse Resp BP Pulse Ox 97.7 F 95 H 18 119/64 100 07/14/18 23:22 07/14/18 23:22 07/14/18 23:22 07/14/18 23:22 07/14/18 23:22 - Medications Medications: Current Medications Acetaminophen (Tylenol 325mg Tab) 650 mg PO Q6 PRN PRN Reason: Pain, Mild (1-3) Alprazolam (Xanax) 0.5 mg PO Q12 PRN PRN Reason: Anxiety Atorvastatin Calcium (Lipitor) 20 mg PO DAILY OSKAR Furosemide (Lasix) 20 mg PO DAILY OSKAR Potassium Chloride/Dextrose/Sod Cl (Potassium Chl 20 Meq In D5-1/2ns) 1,000 mls @ 100 mls/hr IV .Q10H OSKAR Stop: 07/15/18 18:12 Last Admin: 07/15/18 04:28 Dose: Not Given Vancomycin HCl 1 gm/ Sodium (Chloride) 250 mls @ 166.667 mls/hr IVPB Q12 OSKAR; Protocol Ketorolac Tromethamine (Toradol) 30 mg IVP Q6 PRN PRN Reason: Pain, moderate (4-7) Last Admin: 07/14/18 23:58 Dose: 30 mg Losartan Potassium (Cozaar) 50 mg PO DAILY OSKAR Metoprolol Succinate (Toprol Xl) 25 mg PO DAILY OSKAR Morphine Sulfate (Morphine) 1 mg IVP Q4 PRN PRN Reason: Pain, severe (8-10) Last Admin: 07/15/18 05:23 Dose: 1 mg Multivitamins/Minerals (Therapeutic-M Tab) 1 tab PO DAILY OSKAR Oxycodone/Acetaminophen (Percocet 5/325 Mg Tab) 1 tab PO Q8 PRN PRN Reason: Pain, severe (8-10) Stop: 07/18/18 04:57 Sertraline HCl (Zoloft) 50 mg PO HS OSKAR - Labs Labs: 07/15/18 06:00 07/15/18 06:00 PT 13.7 Seconds (9.8-13.1) H 07/14/18 16:16 INR 1.2 07/14/18 16:16 APTT 46.0 Seconds (25.6-37.1) H 07/14/18 16:16 - Constitutional Appears: Non-toxic, No Acute Distress - Respiratory Exam Respiratory Exam: Clear to Ausculation Bilateral - Cardiovascular Exam Cardiovascular Exam: REGULAR RHYTHM, +S1, +S2 - GI/Abdominal Exam GI & Abdominal Exam: Soft. absent: Distended, Firm, Guarding, Rigid, Tenderness, Rebound - Extremities Exam Additional comments: right 4th digit finger tip necrosis/ abscess - Neurological Exam Neurological Exam: Alert, Awake Assessment and Plan - Assessment and Plan (Free Text) Assessment: 68F with right 4th finger tip necrosis/abscess Plan: continue IV antibiotics Plan for OR 07/16, incision drainage with amputation Further recs discuss with Dr Angela Ford, PGY3
--- NOTE | 2018-07-15 08:19 | CP.PCM.CON ---
History of Present Illness - History of Present Illness History of Present Illness: 68 year old female was admitted from the emergency room with an abscess/necrosis of the distal phalanx 4th digit of the right hand. She had trauma to the finger a few weeks ago and was seen in the emergency room. The finger nail was removed and she was placed on oral antibiotics. She continued to have pain and darkening of the finger tip despite continued antibiotics and was referred to the ER for evaluation. She has what she describes as longstanding 'arthritis' of both hands as well as asthma, hypertension, mixed hyperlipidemia, pneumonia, CHF with rLVEF and a prior bout of cellulitis of the RUE. She claims to have lost a significant amount of weight over the last 5 years. Review of Systems - Constitutional Constitutional: Fatigue, Weight Loss - Cardiovascular Cardiovascular: Rapid Heart Rate - Respiratory Respiratory: Dyspnea on Exertion - Musculoskeletal Musculoskeletal: Joint Swelling, Limited Range of Motion (both hands) Past Patient History - Past Social History Smoking Status: Former Smoker (d/c'd more than 20 years ago) Chewing Tobacco Use: No Cigar Use: No Alcohol: Social Drugs: Cannabis (occasional) Home Situation {Lives}: With Family - CARDIAC Hx Congestive Heart Failure: Yes Hx Hypercholesterolemia: Yes Hx Hypertension: Yes - PULMONARY Hx Asthma: Yes Hx Pneumonia: Yes Other/Comment: pleural effusion - NEUROLOGICAL Hx Neurological Disorder: No - HEENT Hx HEENT Problems: No - RENAL Hx Chronic Kidney Disease: No - ENDOCRINE/METABOLIC Hx Endocrine Disorders: No - HEMATOLOGICAL/ONCOLOGICAL Hx Blood Disorders: No - INTEGUMENTARY Hx Cellulitis: Yes - MUSCULOSKELETAL/RHEUMATOLOGICAL Hx Arthritis: Yes Hx Falls: No - GASTROINTESTINAL Hx Gastrointestinal Disorders: No - GENITOURINARY/GYNECOLOGICAL Hx Genitourinary Disorders: No - PSYCHIATRIC Hx Depression: Yes Hx Substance Use: No - SURGICAL HISTORY Hx Surgeries: No - ANESTHESIA Hx Anesthesia: Yes Meds Allergies/Adverse Reactions: Allergies Allergy/AdvReac Type Severity Reaction Status Date / Time No Known Allergies Allergy Verified 07/14/18 15:01 - Medications Medications: Current Medications Acetaminophen (Tylenol 325mg Tab) 650 mg PO Q6 PRN PRN Reason: Pain, Mild (1-3) Alprazolam (Xanax) 0.5 mg PO Q12 PRN PRN Reason: Anxiety Atorvastatin Calcium (Lipitor) 20 mg PO DAILY OSKAR Furosemide (Lasix) 20 mg PO DAILY OSKAR Potassium Chloride/Dextrose/Sod Cl (Potassium Chl 20 Meq In D5-1/2ns) 1,000 mls @ 100 mls/hr IV .Q10H OSKAR Stop: 07/15/18 18:12 Last Admin: 07/15/18 04:28 Dose: Not Given Vancomycin HCl 1 gm/ Sodium (Chloride) 250 mls @ 166.667 mls/hr IVPB Q12 OSKAR; Protocol Ketorolac Tromethamine (Toradol) 30 mg IVP Q6 PRN PRN Reason: Pain, moderate (4-7) Last Admin: 07/14/18 23:58 Dose: 30 mg Losartan Potassium (Cozaar) 50 mg PO DAILY OSKAR Metoprolol Succinate (Toprol Xl) 25 mg PO DAILY OSKAR Morphine Sulfate (Morphine) 1 mg IVP Q4 PRN PRN Reason: Pain, severe (8-10) Last Admin: 07/15/18 05:23 Dose: 1 mg Multivitamins/Minerals (Therapeutic-M Tab) 1 tab PO DAILY OSKAR Oxycodone/Acetaminophen (Percocet 5/325 Mg Tab) 1 tab PO Q8 PRN PRN Reason: Pain, severe (8-10) Stop: 07/18/18 04:57 Sertraline HCl (Zoloft) 50 mg PO HS OSKAR Physical Exam - Additional Findings Additional findings: The nail bed of the ring finger on the right hand is blackened in color without any drainage. The fingertip does appear swollen and is tender to palpation. Remainder of the fingers do show significant arthritic deformities. There is no palpable lymphadenopathy. The neck is supple and trachea is midline. The right carotid does appear to be slightly diminished compared to the left and there are no bruits on either side. There is no dullness to percussion of the thorax. Breath sounds are mildly diminished bilaterally without any rales or wheezes. No bronchial breath sounds or egophony. No rhonchi or rub. Heart sounds are muffled and rhythm is regular. Abdomen soft and nontender with normal bowel sounds. No dependsant edema, no cyanosis, no clubbing, no calf tenderness. Results - Vital Signs Recent Vital Signs: Last Vital Signs Temp 97.5 F L 07/15/18 08:10 Pulse 58 L 07/15/18 08:10 Resp 20 07/15/18 08:10 BP 140/58 L 07/15/18 08:10 Pulse Ox 100 07/15/18 08:10 - Labs Result Diagrams: 07/15/18 06:00 07/15/18 06:00 Labs: Laboratory Results - last 24 hr 07/14/18 07/14/18 07/14/18 16:16 16:16 16:16 WBC 10.6 RBC 3.83 Hgb 12.1 Hct 35.8 MCV 93.3 MCH 31.7 H MCHC 34.0 RDW 14.6 H Plt Count 248 MPV 8.7 Neut % (Auto) 75.4 H Lymph % (Auto) 13.8 L [place] % (Auto) 6.4 Eos % (Auto) 3.5 Baso % (Auto) 0.9 Neut # (Auto) 8.0 H Lymph # (Auto) 1.5 [place] # (Auto) 0.7 Eos # (Auto) 0.4 Baso # (Auto) 0.1 PT 13.7 H INR 1.2 APTT 46.0 H Sodium 138 Potassium 3.3 L Chloride 99 Carbon Dioxide 26 Anion Gap 16 BUN 38 H Creatinine 1.2 Est GFR ( Amer) 54 Est GFR (Non-Af Amer) 45 Random Glucose 98 Calcium 9.5 Total Bilirubin 0.6 AST 43 H ALT 31 Alkaline Phosphatase 105 Total Protein 7.1 Albumin 3.6 Globulin 3.5 Albumin/Globulin Ratio 1.0 07/15/18 07/15/18 06:00 06:00 WBC 13.6 H RBC 4.20 Hgb 13.1 Hct 39.2 MCV 93.5 MCH 31.3 H MCHC 33.5 RDW 14.7 H Plt Count 252 MPV 8.7 Neut % (Auto) 66.3 Lymph % (Auto) 19.8 L [place] % (Auto) 7.5 Eos % (Auto) 5.9 H Baso % (Auto) 0.5 Neut # (Auto) 9.0 H Lymph # (Auto) 2.7 [place] # (Auto) 1.0 H Eos # (Auto) 0.8 H Baso # (Auto) 0.1 PT INR APTT Sodium 137 Potassium 4.0 Chloride 98 Carbon Dioxide 25 Anion Gap 18 BUN 34 H Creatinine 1.0 Est GFR ( Amer) > 60 Est GFR (Non-Af Amer) 55 Random Glucose 109 H Calcium 9.2 Total Bilirubin 0.5 AST 42 H ALT 34 Alkaline Phosphatase 109 Total Protein 7.3 Albumin 3.7 Globulin 3.6 Albumin/Globulin Ratio 1.0 Assessment & Plan (1) Finger infection Status: Acute Priority: High (2) Abscess Status: Acute Priority: High (3) Cardiomyopathy Status: Chronic Priority: High Comment: ?ischemic? (4) CHF (congestive heart failure) Status: Chronic Priority: High Comment: severely reduced LVEF. - Assessment and Plan (Free Text) Plan: Workup for underlying collagen vascular disease. - Date & Time Date: 07/15/18 Time: 08:16
[2018-07-15] MEDS: Multivitamin With Minerals Tab PO SCH (08:30)
[2018-07-15] MEDS: Metoprolol Succinate 25 mg XL Tab PO SCH (08:32)
[2018-07-15] MEDS ORDERED: Patient's Own Med (Multivitamin [Multi-Vitamin Daily] 1 TAB) PO SCH (09:00)
[2018-07-15] MEDS ORDERED: Fluticasone-Salmeterol 250-50mcg Diskus IH SCH (09:00)
--- NOTE | 2018-07-15 09:45 | CP.PCM.CON ---
History of Present Illness - History of Present Illness History of Present Illness: This 68-year-old lady is hospitalized with gangrene of the tip of her right ring finger, which she said is is because of recurring trauma over last few weeks. I have known her for approximately 15 months and gave me history of having had cardiomyopathy for which she was treated from 2010. In 2013 she was hospitalized again and had an large right pleural effusion tapped. She has been taking metoprolol, losartan and a small dose of furosemide for approximately 15 months and denies any orthopnea or pedal edema. She has steadil y lost weight and reports extreme fatigue. She is not a diabetic and denies prior history of myocardial infarction. Her electrocardiogram shows a pattern suggestive of an inferior and posterior wall m yocardial infarction. Physical examination shows a middle aged extremely thin female who is alert aw jose and coherent. Able to lie virtually flat and can carry on a conversation. Her right brachial and radial pulse was extremely poorly felt and her right hand was slightly cool to touch. A necrotic area at the tip of her right ring finger was evident. Left brachial and radial pulses were well felt and her blood pressure in the left upper extremity was 100/70 mmHg. Her jugular venous pressure was not elevated and there was no edema over her lower extremity. She was mildly kyphotic. The apex was in the fifth space the first and second heart sounds were normal with a faint apical systolic murmur. There was no gallop rhythm and there were no rales. Her electro-cardiogram showed sinus bradycardia with Q waves in 1, aVL and V5 and V6 as well as tall broad R waves in V2 and V3 suggestive of an old posterior wall myocardial infarction. An echocardiogram done last year shows a severely depressed left ventricular systolic function. Her lab data shows a hemoglobin and hematocrit of 13.1 g and 39.2% respectively with a WBC count of 13,600 off which 66% were neutrophils and 19.8% were lymphocytes. Her BUN/creatinine were 34 and 1 mg percent. Her electrolytes were essentially normal. Impression gangrene of the tip of right ring finger. Possible ischemic right upper extremity. Congestive cardiomyopathy probably secondary to old inferior lateral and posterior wall myocardial infarction with severe left ventricular systolic dysfunction. An ultrasound of the upper extremity as well as carotids has been requested. Will follow-up after these findings are available. The patient certainly can undergo the planned amputation procedure under regional block. Have discussed with Dr. Boateng. Past Patient History - Past Social History Smoking Status: Former Smoker (d/c'd more than 20 years ago) Chewing Tobacco Use: No Cigar Use: No Alcohol: Social Drugs: Cannabis (occasional) Home Situation {Lives}: With Family - CARDIAC Hx Congestive Heart Failure: Yes Hx Hypercholesterolemia: Yes Hx Hypertension: Yes - PULMONARY Hx Asthma: Yes Hx Pneumonia: Yes Other/Comment: pleural effusion - NEUROLOGICAL Hx Neurological Disorder: No - HEENT Hx HEENT Problems: No - RENAL Hx Chronic Kidney Disease: No - ENDOCRINE/METABOLIC Hx Endocrine Disorders: No - HEMATOLOGICAL/ONCOLOGICAL Hx Blood Disorders: No - INTEGUMENTARY Hx Cellulitis: Yes - MUSCULOSKELETAL/RHEUMATOLOGICAL Hx Arthritis: Yes Hx Falls: No - GASTROINTESTINAL Hx Gastrointestinal Disorders: No - GENITOURINARY/GYNECOLOGICAL Hx Genitourinary Disorders: No - PSYCHIATRIC Hx Depression: Yes Hx Substance Use: No - SURGICAL HISTORY Hx Surgeries: No - ANESTHESIA Hx Anesthesia: Yes Meds Allergies/Adverse Reactions: Allergies Allergy/AdvReac Type Severity Reaction Status Date / Time No Known Allergies Allergy Verified 07/14/18 15:01 - Medications Medications: Current Medications Acetaminophen (Tylenol 325mg Tab) 650 mg PO Q6 PRN PRN Reason: Pain, Mild (1-3) Alprazolam (Xanax) 0.5 mg PO Q12 PRN PRN Reason: Anxiety Atorvastatin Calcium (Lipitor) 20 mg PO DAILY [facility] Last Admin: 07/15/18 08:30 Dose: 20 mg Furosemide (Lasix) 20 mg PO DAILY [facility] Last Admin: 07/15/18 08:30 Dose: 20 mg Potassium Chloride/Dextrose/Sod Cl (Potassium Chl 20 Meq In D5-1/2ns) 1,000 mls @ 100 mls/hr IV .Q10H [facility] Stop: 07/15/18 18:12 Last Admin: 07/15/18 04:28 Dose: Not Given Vancomycin HCl 1 gm/ Sodium (Chloride) 250 mls @ 166.667 mls/hr IVPB Q12 [facility]; Protocol Last Admin: 07/15/18 08:34 Dose: 166.667 mls/hr Piperacillin Sod/Tazobactam (Sod 3.375 gm/ Sodium Chloride) 100 mls @ 100 mls/hr IVPB Q6 [facility]; Protocol Ketorolac Tromethamine (Toradol) 30 mg IVP Q6 PRN PRN Reason: Pain, moderate (4-7) Last Admin: 07/14/18 23:58 Dose: 30 mg Losartan Potassium (Cozaar) 50 mg PO DAILY [facility] Last Admin: 07/15/18 08:29 Dose: 50 mg Metoprolol Succinate (Toprol Xl) 25 mg PO DAILY [facility] Last Admin: 07/15/18 08:32 Dose: 25 mg Morphine Sulfate (Morphine) 1 mg IVP Q4 PRN PRN Reason: Pain, severe (8-10) Last Admin: 07/15/18 05:23 Dose: 1 mg Multivitamins/Minerals (Therapeutic-M Tab) 1 tab PO DAILY [facility] Last Admin: 07/15/18 08:30 Dose: 1 tab Oxycodone/Acetaminophen (Percocet 5/325 Mg Tab) 1 tab PO Q8 PRN PRN Reason: Pain, severe (8-10) Stop: 07/18/18 04:57 Sertraline HCl (Zoloft) 50 mg PO [facility] Results - Vital Signs Recent Vital Signs: Last Vital Signs Temp 97.5 F L 07/15/18 08:10 Pulse 60 07/15/18 08:32 Resp 20 07/15/18 08:10 BP 140/58 L 07/15/18 08:32 Pulse Ox 100 07/15/18 08:10 - Labs Result Diagrams: 07/15/18 06:00 07/15/18 06:00 Labs: Laboratory Results - last 24 hr 07/14/18 07/14/18 07/14/18 16:16 16:16 16:16 WBC 10.6 RBC 3.83 Hgb 12.1 Hct 35.8 MCV 93.3 MCH 31.7 H MCHC 34.0 RDW 14.6 H Plt Count 248 MPV 8.7 Neut % (Auto) 75.4 H Lymph % (Auto) 13.8 L [place] % (Auto) 6.4 Eos % (Auto) 3.5 Baso % (Auto) 0.9 Neut # (Auto) 8.0 H Lymph # (Auto) 1.5 [place] # (Auto) 0.7 Eos # (Auto) 0.4 Baso # (Auto) 0.1 PT 13.7 H INR 1.2 APTT 46.0 H Sodium 138 Potassium 3.3 L Chloride 99 Carbon Dioxide 26 Anion Gap 16 BUN 38 H Creatinine 1.2 Est GFR ( Amer) 54 Est GFR (Non-Af Amer) 45 Random Glucose 98 Calcium 9.5 Total Bilirubin 0.6 AST 43 H ALT 31 Alkaline Phosphatase 105 Total Protein 7.1 Albumin 3.6 Globulin 3.5 Albumin/Globulin Ratio 1.0 07/15/18 07/15/18 06:00 06:00 WBC 13.6 H RBC 4.20 Hgb 13.1 Hct 39.2 MCV 93.5 MCH 31.3 H MCHC 33.5 RDW 14.7 H Plt Count 252 MPV 8.7 Neut % (Auto) 66.3 Lymph % (Auto) 19.8 L [place] % (Auto) 7.5 Eos % (Auto) 5.9 H Baso % (Auto) 0.5 Neut # (Auto) 9.0 H Lymph # (Auto) 2.7 [place] # (Auto) 1.0 H Eos # (Auto) 0.8 H Baso # (Auto) 0.1 PT INR APTT Sodium 137 Potassium 4.0 Chloride 98 Carbon Dioxide 25 Anion Gap 18 BUN 34 H Creatinine 1.0 Est GFR ( Amer) > 60 Est GFR (Non-Af Amer) 55 Random Glucose 109 H Calcium 9.2 Total Bilirubin 0.5 AST 42 H ALT 34 Alkaline Phosphatase 109 Total Protein 7.3 Albumin 3.7 Globulin 3.6 Albumin/Globulin Ratio 1.0
[2018-07-15] MEDS: Piperacillin/Tazobact 3.375 GM in Sodium Chloride 0.9% 100 ML IVPB SCH ×3 (09:58→20:11)
--- NOTE | 2018-07-15 11:44 | US ---
Date of service: 07/15/2018 PROCEDURE: RIGHT UPPER EXTREMITY ARTERIAL ULTRASOUND HISTORY: abnormal right pulse COMPARISON: No prior ultrasound available for comparison. TECHNIQUE: Duplex Doppler ultrasound of the right upper extremity major arteries as informed for evaluation of poor pulses in the right upper extremity. FINDINGS: Evaluation of the subclavian artery demonstrates color Doppler blood flow however the spectral tracing is monophasic indicating severe disease which is similar to that at the axillary and brachial arteries. Monophasic waveforms are identified at the radial and ulnar arteries but with higher diastolic component than arteries above the elbow. Overall pattern suspicious for severe arterial disease throughout the right upper extremity versus potential proximal subclavian or even brachiocephalic arterial high-grade stenosis. Arterial velocities are as discussed below: Subclavian artery 33.0 centimeter/second. Axillary artery 31.7 cm/second. Proximal brachial artery 32.7 cm/second. Mid brachial artery 34.5 cm/second. Distal brachial artery 35.8 centimeter/seconds. Radial artery 37.5 cm/second. Ulnar artery 25.4 cm/second. Impression 25.4 cm/second. IMPRESSION: Severe arterial disease at the right upper extremity potentially throughout all arteries but equally likely at the proximal subclavian artery or even distal brachycephalic artery. Consider follow-up CT angiogram right upper extremity or conventional digital subtraction angiography for added characterization.
--- NOTE | 2018-07-15 11:59 | CP.PCM.PN ---
<Shawna Marquez - Last Filed: 07/15/18 16:47> Subjective - Date & Time of Evaluation Date of Evaluation: 07/15/18 Time of Evaluation: 11:47 - Subjective Subjective: 68 year old female for PMHx of arthritis, asthma, hypertension, mixed hyperlipidemia, pneumonia, and CHF with rLVEF was admitted from the emergency room with an abscess/necrosis of the distal phalanx 4th digit of the right hand. Patient was seen and evaluated at bedside. Patient complains of continued pain to her finger. Patient denies any other complaints Objective - Vital Signs/Intake and Output Vital Signs (last 24 hours): Temp Pulse Resp BP Pulse Ox 97.5 F L 60 20 140/58 L 100 07/15/18 08:10 07/15/18 08:32 07/15/18 08:10 07/15/18 08:32 07/15/18 08:10 - Medications Medications: Current Medications Acetaminophen (Tylenol 325mg Tab) 650 mg PO Q6 PRN PRN Reason: Pain, Mild (1-3) Alprazolam (Xanax) 0.5 mg PO Q12 PRN PRN Reason: Anxiety Last Admin: 07/15/18 09:58 Dose: 0.5 mg Atorvastatin Calcium (Lipitor) 20 mg PO DAILY [facility] Last Admin: 07/15/18 08:30 Dose: 20 mg Furosemide (Lasix) 20 mg PO DAILY [facility] Last Admin: 07/15/18 08:30 Dose: 20 mg Potassium Chloride/Dextrose/Sod Cl (Potassium Chl 20 Meq In D5-1/2ns) 1,000 mls @ 100 mls/hr IV .Q10H [facility] Stop: 07/15/18 18:12 Last Admin: 07/15/18 04:28 Dose: Not Given Vancomycin HCl 1 gm/ Sodium (Chloride) 250 mls @ 166.667 mls/hr IVPB Q12 [facility]; Protocol Last Admin: 07/15/18 08:34 Dose: 166.667 mls/hr Piperacillin Sod/Tazobactam (Sod 3.375 gm/ Sodium Chloride) 100 mls @ 100 mls/hr IVPB Q6 [facility]; Protocol Last Admin: 07/15/18 09:58 Dose: 100 mls/hr Ketorolac Tromethamine (Toradol) 30 mg IVP Q6 PRN PRN Reason: Pain, moderate (4-7) Last Admin: 07/14/18 23:58 Dose: 30 mg Losartan Potassium (Cozaar) 50 mg PO DAILY [facility] Last Admin: 07/15/18 08:29 Dose: 50 mg Metoprolol Succinate (Toprol Xl) 25 mg PO DAILY [facility] Last Admin: 07/15/18 08:32 Dose: 25 mg Morphine Sulfate (Morphine) 1 mg IVP Q4 PRN PRN Reason: Pain, severe (8-10) Last Admin: 07/15/18 05:23 Dose: 1 mg Multivitamins/Minerals (Therapeutic-M Tab) 1 tab PO DAILY [facility] Last Admin: 07/15/18 08:30 Dose: 1 tab Oxycodone/Acetaminophen (Percocet 5/325 Mg Tab) 1 tab PO Q8 PRN PRN Reason: Pain, severe (8-10) Stop: 07/18/18 04:57 Sertraline HCl (Zoloft) 50 mg PO HS [facility] - Labs Labs: 07/15/18 06:00 07/15/18 06:00 PT 13.7 Seconds (9.8-13.1) H 07/14/18 16:16 INR 1.2 07/14/18 16:16 APTT 46.0 Seconds (25.6-37.1) H 07/14/18 16:16 - Constitutional Appears: Well, Non-toxic, No Acute Distress - Head Exam Head Exam: ATRAUMATIC, NORMOCEPHALIC - Eye Exam Eye Exam: Normal appearance - ENT Exam ENT Exam: Mucous Membranes Moist - Neck Exam Neck Exam: Full ROM. absent: Lymphadenopathy - Respiratory Exam Respiratory Exam: Decreased Breath Sounds. absent: Rales, Rhonchi, Wheezes - Cardiovascular Exam Cardiovascular Exam: REGULAR RHYTHM - GI/Abdominal Exam GI & Abdominal Exam: Soft. absent: Firm, Guarding, Rigid - Extremities Exam Extremities Exam: Tenderness Additional comments: right 4th digit necrotic without any drainage, positive swelling with significant arthritic deformities - Neurological Exam Neurological Exam: Alert, Awake, Oriented x3 - Psychiatric Exam Psychiatric exam: Normal Affect, Normal Mood Assessment and Plan - Assessment and Plan (Free Text) Assessment: 68 year old female for PMHx of arthritis, asthma, hypertension, mixed hyperlipidemia, pneumonia, and CHF with rLVEF was admitted from the emergency room with an abscess/necrosis of the distal phalanx 4th digit of the right hand. Plan: Right 4th digit finger abscess and necrosis - acute, symptomatic - Afebrile, WBC of 13.6 - Right Hand X-ray: focal soft tisue swelling, air within the subungual space 4th digit, bony resorption identified at this and other levels - Blood Cultures Pending - started on Vancomycin 1 gm IV and Zosyn 3.375 gm IV - Pain control - Surgical consult, Dr. Miller- patient OR plan pending- for incision/drainage/amputation - Infectious Disease consulte- Dr. Holloway HTN - chronic, asymptomatic - continue with home meds - Cardiology consult, Dr. Osorio- recommendations appreciated Arthritis - chronic, asymptomatic - continue with home meds - F/U CAROLE, Anti-pm/SCL 100 AB, DNA, SCL-70 Asthma - chronic, asymptomatic - continue with home meds Hyperlipidemia - chronic, asymptomatic - continue with home meds CHF with rLVEF - chronic, asymptomatic - continue with home meds - Cardiology consult, Dr. Osorio- recommendations appreciated- ordered Carotid and Vertebral US ? Hx of Depression/Anxiety - asymptomatic - Sertraline, Xanax DVT Prophylaxis - SCDs for now <Kyra Fulton - Last Filed: 07/15/18 17:18> Objective - Vital Signs/Intake and Output Vital Signs (last 24 hours): Temp Pulse Resp BP Pulse Ox 97.5 F L 50 L 20 91/51 L 96 07/15/18 16:33 07/15/18 16:33 07/15/18 16:33 07/15/18 16:33 07/15/18 16:33 - Medications Medications: Current Medications Acetaminophen (Tylenol 325mg Tab) 650 mg PO Q6 PRN PRN Reason: Pain, Mild (1-3) Alprazolam (Xanax) 0.5 mg PO Q12 PRN PRN Reason: Anxiety Last Admin: 07/15/18 09:58 Dose: 0.5 mg Atorvastatin Calcium (Lipitor) 20 mg PO DAILY [facility] Last Admin: 07/15/18 08:30 Dose: 20 mg Furosemide (Lasix) 20 mg PO DAILY [facility] Last Admin: 07/15/18 08:30 Dose: 20 mg Potassium Chloride/Dextrose/Sod Cl (Potassium Chl 20 Meq In D5-1/2ns) 1,000 mls @ 100 mls/hr IV .Q10H [facility] Stop: 07/15/18 18:12 Last Admin: 07/15/18 16:34 Dose: Not Given Vancomycin HCl 1 gm/ Sodium (Chloride) 250 mls @ 166.667 mls/hr IVPB Q12 [facility]; Protocol Last Admin: 07/15/18 08:34 Dose: 166.667 mls/hr Piperacillin Sod/Tazobactam (Sod 3.375 gm/ Sodium Chloride) 100 mls @ 100 mls/hr IVPB Q12 [facility]; Protocol Ketorolac Tromethamine (Toradol) 30 mg IVP Q6 PRN PRN Reason: Pain, moderate (4-7) Last Admin: 07/14/18 23:58 Dose: 30 mg Losartan Potassium (Cozaar) 50 mg PO DAILY [facility] Last Admin: 07/15/18 08:29 Dose: 50 mg Metoprolol Succinate (Toprol Xl) 25 mg PO DAILY [facility] Last Admin: 07/15/18 08:32 Dose: 25 mg Morphine Sulfate (Morphine) 1 mg IVP Q4 PRN PRN Reason: Pain, severe (8-10) Last Admin: 07/15/18 05:23 Dose: 1 mg Multivitamins/Minerals (Therapeutic-M Tab) 1 tab PO DAILY [facility] Last Admin: 07/15/18 08:30 Dose: 1 tab Oxycodone/Acetaminophen (Percocet 5/325 Mg Tab) 1 tab PO Q8 PRN PRN Reason: Pain, severe (8-10) Stop: 07/18/18 04:57 Last Admin: 07/15/18 12:32 Dose: 1 tab Sertraline HCl (Zoloft) 50 mg PO HS [facility] - Labs Labs: 07/15/18 06:00 07/15/18 06:00 PT 13.7 Seconds (9.8-13.1) H 07/14/18 16:16 INR 1.2 07/14/18 16:16 APTT 46.0 Seconds (25.6-37.1) H 07/14/18 16:16 Attending/Attestation - Attestation I have personally seen and examined this patient.: Yes I have fully participated in the care of the patient.: Yes I have reviewed all pertinent clinical information, including history, physical exam and plan: Yes Notes (Text): Right 4th Digit Abscess/Necrosis - Hand Sx consulted- plan for amputation in am - cleared by Dr Gianfranco Osorio for surgery - cont IV Zosyn and Vanco - Dr Holloway consulted PVD - RUE shows severe arterial disease on Arterial US, would need CT Angio to further eval - restart antiplatelet after surgery, cont statin Ischemic Congestive Cardiomyopathy, systolic and diastolic dysfunction previous EF 20% - Dr Osorio following pt -cont Lasix , BB, ARB Bilat Hydronephrosis ? etiology - stone seen on Renal Sono however stone is only on right - will do Abd and Pelvic Sonogram to r/o mass compressing on ureters - may be - Urinalysis - Creatinine normal
--- NOTE | 2018-07-15 12:17 | CARD ---
APPROVED REPORT Date of service: 07/14/2018 EKG Measurement Heart [id number] <Conclusion> Sinus bradycardia Lateral infarct, age undetermined Inferior-posterior infarct, age undetermined Abnormal ECG
[2018-07-15] MEDS: Oxycodone/Acetaminophen 5/325 mg Tab PO PRN ×2 (12:32→20:15)
--- NOTE | 2018-07-15 14:04 | US ---
Date of service: 07/15/2018 PROCEDURE: Ultrasound of the Kidneys HISTORY: cyst? right kidney COMPARISON: None available. TECHNIQUE: Sonogram of the kidneys. FINDINGS: RIGHT KIDNEY: Measures: 6.1 x 6.2 x 9.0 cm. Normal in size, contour and echogenicity. Moderate hydronephrosis. Multiple echogenic foci/calculi largest 5 mm. LEFT KIDNEY: Measures: 4.4 x 4.2 x 11.6 cm. Normal in size, contour and echogenicity. Mild left hydronephrosis. OTHER FINDINGS: None. IMPRESSION: Hydronephrosis bilaterally right greater than left. Unilateral, right renal calculi none larger than 5 mm.
--- NOTE | 2018-07-15 14:10 | US ---
Date of service: 07/15/2018 PROCEDURE: Duplex ultrasound of the carotid and vertebral arteries. HISTORY: decreased right carotid impulse COMPARISON: None available. TECHNIQUE: Grayscale and duplex Doppler evaluation of the cervical carotid and vertebral arteries were performed. The common carotid, carotid bifurcations and cervical ICA and proximal ECA were evaluated. The vertebral arteries were evaluated for gross patency and direction. FINDINGS: RIGHT CAROTID ARTERIES: Common Carotid Artery: Maximal flow velocity of 24.7 cm/s. Carotid Bifurcation: Intimal thickening is present this is particularly prior evident at the bifurcation where partially calcified plaque is abundant. Internal Carotid Artery:Heterogeneous plaque formation. Maximal flow velocity of 53.1 cm/s. External Carotid Artery (proximal branches): Maximal flow velocity of 84.0 cm/s. ICA/CCA Ratio: 2.1 LEFT CAROTID ARTERIES: Common Carotid Artery: Maximal flow velocity of 108.2 cm/s. Carotid Bifurcation: Heterogeneous plaque formation. Extensive, asymmetric extending into the left proximal ICA Internal Carotid Artery:Heterogeneous plaque formation. Maximal flow velocity of 115.9 cm/s. External Carotid Artery (proximal branches): Maximal flow velocity of 114.5 cm/s. ICA/CCA Ratio: 1.2 VERTEBRAL ARTERIES: Right Vertebral Artery: Retrograde amelia. Left Vertebral Artery: Patent. Antegrade flow. OTHER FINDINGS: Atherosclerotic calcification present. IMPRESSION: Right ICA degree of stenosis: Less than 50% Please note: Asymmetric depressed peak systolic velocities in the right carotid system suggests a more proximal narrowing or area of stenosis, impedance antegrade flow. This is consistent with retrograde flow in the right vertebral artery. Left ICA degree of stenosis: Less than 50% Reference Internal Carotid Artery (ICA) Peak Systolic Velocity (PSV) for above: 1. Less than 50% stenosis less than 125 cm/s peak systolic velocity 2. 50-69% stenosis 125-230cm/s peak systolic velocity 3. Greater than 70% but less than near occlusion greater than 230 cm/s peak systolic velocity
--- NOTE | 2018-07-15 22:35 | CP.PCM.HP ---
History of Present Illness - History of Present Illness History of Present Illness: 68 year old female for PMHx of arthritis, asthma, hypertension, mixed hyperlipidemia, pneumonia, and CHF with rLVEF was admitted from the emergency room with an abscess/necrosis of the distal phalanx 4th digit of the right hand. PMD: Dr. Boateng PMHx: CHF, CAD, HTN PSHx: denied by patient Family Hx: unknown family hx Social hx: unknown smoking history Present on Admission - Present on Admission Any Indicators Present on Admission: No Review of Systems - Review of Systems All systems: reviewed and no additional remarkable complaints except Past Patient History - Past Social History Smoking Status: Former Smoker (d/c'd more than 20 years ago) Chewing Tobacco Use: No Cigar Use: No Alcohol: Social Drugs: Cannabis (occasional) Home Situation {Lives}: With Family - CARDIAC Hx Congestive Heart Failure: Yes Hx Hypercholesterolemia: Yes Hx Hypertension: Yes - PULMONARY Hx Asthma: Yes Hx Pneumonia: Yes Other/Comment: pleural effusion - NEUROLOGICAL Hx Neurological Disorder: No - HEENT Hx HEENT Problems: No - RENAL Hx Chronic Kidney Disease: No - ENDOCRINE/METABOLIC Hx Endocrine Disorders: No - HEMATOLOGICAL/ONCOLOGICAL Hx Blood Disorders: No - INTEGUMENTARY Hx Cellulitis: Yes - MUSCULOSKELETAL/RHEUMATOLOGICAL Hx Arthritis: Yes Hx Falls: No - GASTROINTESTINAL Hx Gastrointestinal Disorders: No - GENITOURINARY/GYNECOLOGICAL Hx Genitourinary Disorders: No - PSYCHIATRIC Hx Depression: Yes Hx Substance Use: No - SURGICAL HISTORY Hx Surgeries: No - ANESTHESIA Hx Anesthesia: Yes Meds Allergies/Adverse Reactions: Allergies Allergy/AdvReac Type Severity Reaction Status Date / Time No Known Allergies Allergy Verified 07/14/18 15:01 Physical Exam - Additional Findings Additional findings: - Constitutional Appears: Well, Non-toxic, No Acute Distress - Head Exam Head Exam: ATRAUMATIC, NORMOCEPHALIC - Eye Exam Eye Exam: Normal appearance - ENT Exam ENT Exam: Mucous Membranes Moist - Neck Exam Neck Exam: Full ROM. absent: Lymphadenopathy - Respiratory Exam Respiratory Exam: Decreased Breath Sounds. absent: Rales, Rhonchi, Wheezes - Cardiovascular Exam Cardiovascular Exam: REGULAR RHYTHM - GI/Abdominal Exam GI & Abdominal Exam: Soft. absent: Firm, Guarding, Rigid - Extremities Exam Extremities Exam: Tenderness Additional comments: right 4th digit necrotic without any drainage, positive swelling with s ignificant arthritic deformities Results - Vital Signs Recent Vital Signs: Last Vital Signs Temp 97.5 F L 07/15/18 16:33 Pulse 50 L 07/15/18 16:33 Resp 20 07/15/18 16:33 BP 91/51 L 07/15/18 16:33 Pulse Ox 96 07/15/18 16:33 - Labs Result Diagrams: 07/15/18 06:00 07/15/18 06:00 Labs: Laboratory Results - last 24 hr 07/15/18 07/15/18 07/15/18 06:00 06:00 09:03 WBC 13.6 H RBC 4.20 Hgb 13.1 Hct 39.2 MCV 93.5 MCH 31.3 H MCHC 33.5 RDW 14.7 H Plt Count 252 MPV 8.7 Neut % (Auto) 66.3 Lymph % (Auto) 19.8 L Fallon % (Auto) 7.5 Eos % (Auto) 5.9 H Baso % (Auto) 0.5 Neut # (Auto) 9.0 H Lymph # (Auto) 2.7 Fallon # (Auto) 1.0 H Eos # (Auto) 0.8 H Baso # (Auto) 0.1 ESR 18 Sodium 137 Potassium 4.0 Chloride 98 Carbon Dioxide 25 Anion Gap 18 BUN 34 H Creatinine 1.0 Est GFR ( Amer) > 60 Est GFR (Non-Af Amer) 55 Random Glucose 109 H Calcium 9.2 Total Bilirubin 0.5 AST 42 H ALT 34 Alkaline Phosphatase 109 Total Protein 7.3 Albumin 3.7 Globulin 3.6 Albumin/Globulin Ratio 1.0 Vancomycin Trough 07/15/18 21:00 WBC RBC Hgb Hct MCV MCH MCHC RDW Plt Count MPV Neut % (Auto) Lymph % (Auto) Fallon % (Auto) Eos % (Auto) Baso % (Auto) Neut # (Auto) Lymph # (Auto) Fallon # (Auto) Eos # (Auto) Baso # (Auto) ESR Sodium Potassium Chloride Carbon Dioxide Anion Gap BUN Creatinine Est GFR ( Amer) Est GFR (Non-Af Amer) Random Glucose Calcium Total Bilirubin AST ALT Alkaline Phosphatase Total Protein Albumin Globulin Albumin/Globulin Ratio Vancomycin Trough 23.8 H Assessment & Plan - Assessment and Plan (Free Text) Assessment: 68 year old female for PMHx of arthritis, asthma, hypertension, mixed hyperlipidemia, pneumonia, and CHF with rLVEF was admitted from the emergency room with an abscess/necrosis of the distal phalanx 4th digit of the right hand. Plan: - Right Hand X-ray: focal soft tisue swelling, air within the subungual space 4th digit, bony resorption identified at this and other levels - Blood Cultures Pending - On Vancomycin 1 gm IV and Zosyn 3.375 gm IV - Surgical consult, Dr. Miller. - Infectious Disease consult, Dr. Holloway - Pt is medically optimized, cleared by cardiology, for proposed surgery tomorrow 07/16/18, Incision drainage with amputation of 4th digit in R hand. - Continue plan as ordered - NPO after midnight, IV D5-1/2NS-20mEqKCl at 50mL/hr due to rEF-CHF. - Date & Time Date: 07/15/18 Time: 22:35
--- NOTE | 2018-07-16 03:35 | CON ---
DATE: 07/15/2018 INFECTIOUS DISEASE CONSULTATION HISTORY OF PRESENT ILLNESS: Amarilis is a 68-year-old female with a past medical history of arthritis, asthma, hypertension, pneumonia, and CHF with severely reduced left ventricular function. She was admitted from the emergency room with an abscess or mostly necrosis of the distal phalanx of the fourth digit on the right hand. The patient had been in the ER after she had injured the finger and had infection. The nail was removed at that time and placed on oral antibiotics, but came back to the ER with worsening of the finger tip or distal phalanx. She denies any history of fever, chills and/or sweats. The patient is alert, cooperative and oriented to time and place. I had seen her a few years back, and she is almost cachectic appearance as to what she previously was. She does state that she has not been eating. PHYSICAL EXAMINATION: HEENT: Wasting, both malar and temporal. Eyes are within normal limits. NECK: Supple. LUNGS: Decreased breath sounds bilaterally. There are some wheezing. HEART: Regular sinus rhythm. ABDOMEN: Soft. Positive bowel sounds. EXTREMITIES: The right fourth digit necrotic. LABORATORY DATA: Her white count is 13.6, hemoglobin 13.1, platelets are 252. Polys are 66, lymphs are 19. INR was 1.2, creatinine is 1, GFR is 55. Carotid artery ultrasound, right ICA degree of stenosis less than 50%. IMPRESSION: 1. Necrosis of finger. 2. Congestive heart failure. 3. Chronic obstructive pulmonary disease. 4. Mild renal insufficiency. PLAN: The patient is scheduled to go to the operating room tomorrow for amputation of the distal phalanx. At this time, we would continue with IV antibiotics, IV Zosyn. Gianni Holloway MD
[2018-07-16 06:52] LABS: HEMOGLOBIN 11.9 g/dL (12.0-16.0); MEAN CELL VOLUME 95.6 fl (81.0-99.0); MEAN CORPUSCULAR HEMOGLOBIN 31.8 pg (27.0-31.0); MEAN CORPUSCULAR HGB CONC 33.2 g/dL (33.0-37.0); RBC 3.75 Mil/uL (3.80-5.20); RED CELL DISTRIBUTION WIDTH 14.7 % (11.5-14.5); WHITE BLOOD COUNT 10.2 K/uL (4.8-10.8)
[2018-07-16] MEDS ORDERED: Bupivacaine HCl 0.25% PF (30 ml) Inj ONE (07:20)
[2018-07-16] MEDS ORDERED: Lidocaine 1% Inj (20ml) ONE (07:20)
[2018-07-16] MEDS ORDERED: Lidocaine 1% w Epi 1:100,000 Inj ONE (07:21)
[2018-07-16 07:30] LABS: BLOOD UREA NITROGEN 29 mg/dl (7-17); GFR NON-AFRICAN AMERICAN 55
[2018-07-16 07:31] LABS: CALCIUM 8.7 mg/dL (8.4-10.2)
[2018-07-16] MEDS: Oxycodone/Acetaminophen 5/325 mg Tab PO PRN ×2 (09:16→17:35)
[2018-07-16] MEDS: Multivitamin With Minerals Tab PO SCH (09:18)
[2018-07-16] MEDS: Metoprolol Succinate 25 mg XL Tab PO SCH (09:18)
--- NOTE | 2018-07-16 09:46 | CP.PCM.PN ---
Subjective - Date & Time of Evaluation Date of Evaluation: 07/16/18 Time of Evaluation: 09:10 - Subjective Subjective: The surgeon canceled the surgery this morning after the patient was in the OR. Her vital signs are stable. Arterial ultrasound and Doppler assessment of carotid arteries and upper extremities was noted. If necessary the amputation procedure could be carried out as an outpatient and the patient will certainly require vascular assessment. I have discussed this with Dr. Boateng. Objective - Vital Signs/Intake and Output Vital Signs (last 24 hours): Temp Pulse Resp BP Pulse Ox 97.7 F 57 L 20 147/67 96 07/16/18 08:40 07/16/18 09:18 07/16/18 08:40 07/16/18 09:18 07/16/18 08:40 - Medications Medications: Current Medications Acetaminophen (Tylenol 325mg Tab) 650 mg PO Q6 PRN PRN Reason: Pain, Mild (1-3) Alprazolam (Xanax) 0.5 mg PO Q12 PRN PRN Reason: Anxiety Last Admin: 07/15/18 09:58 Dose: 0.5 mg Atorvastatin Calcium (Lipitor) 20 mg PO DAILY [facility] Last Admin: 07/16/18 09:18 Dose: Not Given Furosemide (Lasix) 20 mg PO DAILY [facility] Last Admin: 07/16/18 09:18 Dose: Not Given Piperacillin Sod/Tazobactam (Sod 3.375 gm/ Sodium Chloride) 100 mls @ 100 mls/hr IVPB Q12 [facility]; Protocol Last Admin: 07/15/18 20:11 Dose: 100 mls/hr Potassium Chloride/Dextrose/Sod Cl (Potassium Chl 20 Meq In D5-1/2ns) 1,000 mls @ 50 mls/hr IV .Q20H [facility] Stop: 07/16/18 22:26 Last Admin: 07/15/18 22:50 Dose: 50 mls/hr Vancomycin HCl 1 gm/ Sodium (Chloride) 250 mls @ 166.667 mls/hr IVPB DAILY [facility]; Protocol Ketorolac Tromethamine (Toradol) 30 mg IVP Q6 PRN PRN Reason: Pain, moderate (4-7) Last Admin: 07/15/18 17:25 Dose: 30 mg Losartan Potassium (Cozaar) 50 mg PO DAILY [facility] Last Admin: 07/16/18 09:17 Dose: Not Given Metoprolol Succinate (Toprol Xl) 25 mg PO DAILY [facility] Last Admin: 07/16/18 09:18 Dose: Not Given Morphine Sulfate (Morphine) 1 mg IVP Q4 PRN PRN Reason: Pain, severe (8-10) Last Admin: 07/15/18 05:23 Dose: 1 mg Multivitamins/Minerals (Therapeutic-M Tab) 1 tab PO DAILY [facility] Last Admin: 07/16/18 09:18 Dose: Not Given Ondansetron HCl (Zofran Inj) 4 mg IVP Q6 PRN PRN Reason: Nausea/Vomiting Last Admin: 07/16/18 06:24 Dose: 4 mg Oxycodone/Acetaminophen (Percocet 5/325 Mg Tab) 1 tab PO Q8 PRN PRN Reason: Pain, moderate (4-7) Stop: 07/18/18 04:57 Last Admin: 07/16/18 09:16 Dose: 1 tab Sertraline HCl (Zoloft) 50 mg PO [facility] Last Admin: 07/15/18 21:59 Dose: Not Given - Labs Labs: 07/16/18 06:05 07/16/18 06:05 PT 13.7 Seconds (9.8-13.1) H 07/14/18 16:16 INR 1.2 07/14/18 16:16 APTT 46.0 Seconds (25.6-37.1) H 07/14/18 16:16
--- NOTE | 2018-07-16 12:09 | CP.PCM.PN ---
Subjective - Date & Time of Evaluation Date of Evaluation: 07/16/18 Time of Evaluation: 12:36 - Subjective Subjective: 68 year old female for PMHx of arthritis, asthma, hypertension, mixed hyperlipidemia, pneumonia, and CHF with rLVEF was admitted from the emergency room with an abscess/necrosis of the distal phalanx 4th digit of the right hand. Patient was seen and evaluated at bedside. Patient complains of continued pain to her finger. Patient denies any other complaints, and is agreeable to further testing Objective - Vital Signs/Intake and Output Vital Signs (last 24 hours): Temp Pulse Resp BP Pulse Ox 97.7 F 57 L 20 147/67 96 07/16/18 08:40 07/16/18 09:18 07/16/18 08:40 07/16/18 09:18 07/16/18 08:40 - Medications Medications: Current Medications Acetaminophen (Tylenol 325mg Tab) 650 mg PO Q6 PRN PRN Reason: Pain, Mild (1-3) Alprazolam (Xanax) 0.5 mg PO Q12 PRN PRN Reason: Anxiety Last Admin: 07/15/18 09:58 Dose: 0.5 mg Atorvastatin Calcium (Lipitor) 20 mg PO DAILY [facility] Last Admin: 07/16/18 09:18 Dose: Not Given Furosemide (Lasix) 20 mg PO DAILY [facility] Last Admin: 07/16/18 09:18 Dose: Not Given Piperacillin Sod/Tazobactam (Sod 3.375 gm/ Sodium Chloride) 100 mls @ 100 mls/hr IVPB Q12 [facility]; Protocol Last Admin: 07/15/18 20:11 Dose: 100 mls/hr Potassium Chloride/Dextrose/Sod Cl (Potassium Chl 20 Meq In D5-1/2ns) 1,000 mls @ 50 mls/hr IV .Q20H [facility] Stop: 07/16/18 22:26 Last Admin: 07/15/18 22:50 Dose: 50 mls/hr Vancomycin HCl 1 gm/ Sodium (Chloride) 250 mls @ 166.667 mls/hr IVPB DAILY [facility]; Protocol Ketorolac Tromethamine (Toradol) 30 mg IVP Q6 PRN PRN Reason: Pain, moderate (4-7) Last Admin: 07/15/18 17:25 Dose: 30 mg Losartan Potassium (Cozaar) 50 mg PO DAILY [facility] Last Admin: 07/16/18 09:17 Dose: Not Given Metoprolol Succinate (Toprol Xl) 25 mg PO DAILY [facility] Last Admin: 07/16/18 09:18 Dose: Not Given Morphine Sulfate (Morphine) 1 mg IVP Q4 PRN PRN Reason: Pain, severe (8-10) Last Admin: 07/15/18 05:23 Dose: 1 mg Multivitamins/Minerals (Therapeutic-M Tab) 1 tab PO DAILY [facility] Last Admin: 07/16/18 09:18 Dose: Not Given Ondansetron HCl (Zofran Inj) 4 mg IVP Q6 PRN PRN Reason: Nausea/Vomiting Last Admin: 07/16/18 06:24 Dose: 4 mg Oxycodone/Acetaminophen (Percocet 5/325 Mg Tab) 1 tab PO Q8 PRN PRN Reason: Pain, moderate (4-7) Stop: 07/18/18 04:57 Last Admin: 07/16/18 09:16 Dose: 1 tab Sertraline HCl (Zoloft) 50 mg PO [facility] Last Admin: 07/15/18 21:59 Dose: Not Given - Labs Labs: 07/16/18 06:05 07/16/18 06:05 PT 13.7 Seconds (9.8-13.1) H 07/14/18 16:16 INR 1.2 07/14/18 16:16 APTT 46.0 Seconds (25.6-37.1) H 07/14/18 16:16 - Constitutional Appears: Well, Non-toxic, No Acute Distress - Head Exam Head Exam: ATRAUMATIC, NORMOCEPHALIC - Eye Exam Eye Exam: Normal appearance - ENT Exam ENT Exam: Mucous Membranes Moist - Neck Exam Neck Exam: Full ROM. absent: Lymphadenopathy - Respiratory Exam Respiratory Exam: Clear to Ausculation Bilateral, NORMAL BREATHING PATTERN. absent: Rales, Rhonchi - Cardiovascular Exam Cardiovascular Exam: REGULAR RHYTHM, +S1, +S2, Murmur - GI/Abdominal Exam GI & Abdominal Exam: Soft, Normal Bowel Sounds. absent: Firm, Guarding, Rigid - Extremities Exam Additional comments: right 4th digit necrotic without any drainage, positive swelling with significant arthritic deformities - Neurological Exam Neurological Exam: Alert, Awake, Oriented x3 - Psychiatric Exam Psychiatric exam: Normal Affect, Normal Mood Assessment and Plan - Assessment and Plan (Free Text) Assessment: 68 year old female for PMHx of arthritis, asthma, hypertension, mixed hyperlipidemia, pneumonia, and CHF with rLVEF was admitted from the emergency room with an abscess/necrosis of the distal phalanx 4th digit of the right hand. Plan: Right 4th digit finger abscess and necrosis - acute, symptomatic - Afebrile, WBC of 10.2, trending down - Right Hand X-ray: focal soft tisue swelling, air within the subungual space 4th digit, bony resorption identified at this and other levels - Blood Cultures : no growth after 24 hours - started on Vancomycin 1 gm IV and Zosyn 3.375 gm IV - Vanc trough 23.7, hold Vancomycin today and restart tomorrow at Vanc 1 gm DAILY - Pain control - Surgical consult, Dr. Miller- patient OR plan pending- for incision/drainage/amputation, likely 07/17/18 - Infectious Disease consult- Dr. Holloway HTN - chronic, asymptomatic - continue with home meds - Cardiology consult, Dr. Osorio- recommendations appreciated Arthritis - chronic, asymptomatic - continue with home meds - F/U CAROLE, Anti-pm/SCL 100 AB, DNA, SCL-70 Asthma - chronic, asymptomatic - continue with home meds Hyperlipidemia - chronic, asymptomatic - continue with home meds Hydronephrosis - Renal Ultrasound- hydronephrosis bilaterally right greater than left, unila teral right renal calculi none larger than 5 mm - Pending Abd US CHF with rLVEF - chronic, asymptomatic - continue with home meds - Cardiology consult, Dr. Osorio- recommendations appreciated - Extremity US: severe arterial disease at the right upper extremity potentially throughout all arteries, but equally likely at the proximal subclavian artery or even distal brachycephalic artery, consider follow up CT Peripheral Vascular Disease - Extremity US: severe arterial disease at the right upper extremity potentially throughout all arteries, but equally likely at the proximal subclavian artery or even distal brachycephalic artery, consider follow up CT - Interventional Radiology consult, Dr. Lira- for CTA of the right upper extremity ? Hx of Depression/Anxiety - asymptomatic - Sertraline, Xanax DVT Prophylaxis - SCDs for now
--- NOTE | 2018-07-16 12:49 | CP.PCM.PN ---
<Cristian Gee - Last Filed: 07/16/18 13:18> Subjective - Date & Time of Evaluation Date of Evaluation: 07/16/18 Time of Evaluation: 09:00 - Subjective Subjective: Pt seen and examined at bedside. Pt denies acute overnight events. Denies SOB or cough. breathing comfortably. Afebrile Objective - Vital Signs/Intake and Output Vital Signs (last 24 hours): Temp Pulse Resp BP Pulse Ox 97.7 F 57 L 20 147/67 96 07/16/18 08:40 07/16/18 09:18 07/16/18 08:40 07/16/18 09:18 07/16/18 08:40 - Medications Medications: Current Medications Acetaminophen (Tylenol 325mg Tab) 650 mg PO Q6 PRN PRN Reason: Pain, Mild (1-3) Alprazolam (Xanax) 0.5 mg PO Q12 PRN PRN Reason: Anxiety Last Admin: 07/15/18 09:58 Dose: 0.5 mg Atorvastatin Calcium (Lipitor) 20 mg PO DAILY [facility] Last Admin: 07/16/18 09:18 Dose: Not Given Furosemide (Lasix) 20 mg PO DAILY [facility] Last Admin: 07/16/18 09:18 Dose: Not Given Piperacillin Sod/Tazobactam (Sod 3.375 gm/ Sodium Chloride) 100 mls @ 100 mls/hr IVPB Q12 [facility]; Protocol Last Admin: 07/15/18 20:11 Dose: 100 mls/hr Potassium Chloride/Dextrose/Sod Cl (Potassium Chl 20 Meq In D5-1/2ns) 1,000 mls @ 50 mls/hr IV .Q20H [facility] Stop: 07/16/18 22:26 Last Admin: 07/15/18 22:50 Dose: 50 mls/hr Vancomycin HCl 1 gm/ Sodium (Chloride) 250 mls @ 166.667 mls/hr IVPB DAILY [facility]; Protocol Ketorolac Tromethamine (Toradol) 30 mg IVP Q6 PRN PRN Reason: Pain, moderate (4-7) Last Admin: 07/15/18 17:25 Dose: 30 mg Losartan Potassium (Cozaar) 50 mg PO DAILY [facility] Last Admin: 07/16/18 09:17 Dose: Not Given Metoprolol Succinate (Toprol Xl) 25 mg PO DAILY [facility] Last Admin: 07/16/18 09:18 Dose: Not Given Morphine Sulfate (Morphine) 1 mg IVP Q4 PRN PRN Reason: Pain, severe (8-10) Last Admin: 07/15/18 05:23 Dose: 1 mg Multivitamins/Minerals (Therapeutic-M Tab) 1 tab PO DAILY [facility] Last Admin: 07/16/18 09:18 Dose: Not Given Ondansetron HCl (Zofran Inj) 4 mg IVP Q6 PRN PRN Reason: Nausea/Vomiting Last Admin: 07/16/18 06:24 Dose: 4 mg Oxycodone/Acetaminophen (Percocet 5/325 Mg Tab) 1 tab PO Q8 PRN PRN Reason: Pain, moderate (4-7) Stop: 07/18/18 04:57 Last Admin: 07/16/18 09:16 Dose: 1 tab Sertraline HCl (Zoloft) 50 mg PO HS [facility] Last Admin: 07/15/18 21:59 Dose: Not Given - Labs Labs: 07/16/18 06:05 07/16/18 06:05 PT 13.7 Seconds (9.8-13.1) H 07/14/18 16:16 INR 1.2 07/14/18 16:16 APTT 46.0 Seconds (25.6-37.1) H 07/14/18 16:16 - Constitutional Appears: No Acute Distress - Eye Exam Eye Exam: EOMI - ENT Exam ENT Exam: Mucous Membranes Moist - Neck Exam Neck Exam: Full ROM - Respiratory Exam Respiratory Exam: Clear to Ausculation Bilateral - Cardiovascular Exam Cardiovascular Exam: +S1, +S2 - GI/Abdominal Exam GI & Abdominal Exam: Soft, Normal Bowel Sounds. absent: Tenderness - Extremities Exam Additional comments: Necrosis of distal, 4th digit, R - Neurological Exam Neurological Exam: Alert, Awake - Psychiatric Exam Psychiatric exam: Normal Affect, Normal Mood Assessment and Plan (1) Cardiomyopathy Status: Chronic (2) Abscess Status: Acute (3) Finger infection Status: Acute (4) CHF (congestive heart failure) Status: Chronic - Assessment and Plan (Free Text) Assessment: 68 yo F with pmhx of arthritis, asthma, hypertension, mixed hyperlipidemia, pneumonia, and CHF with rLVEF was admitted with an abscess/necrosis of the distal phalanx 4th digit of the right hand Plan: Pt pending for possible I&D/amputation of R: 4th distal digit 2/2 necrosis. 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 Gianfranco Osorio: pt will require f/u with vascular specialist Case and plan d/w Dr. Kilo Gee MD PGY-2 <Fortunato Boateng - Last Filed: 07/16/18 14:38> Subjective - Subjective Subjective: The patient was seen together with the resident on morning rounds on the medical floor. Physical exam was reviewed and the case findings were discussed. Plan of care was discussed as well. Objective - Vital Signs/Intake and Output Vital Signs (last 24 hours): Temp Pulse Resp BP Pulse Ox 97.7 F 57 L 20 147/67 96 07/16/18 08:40 07/16/18 09:18 07/16/18 08:40 07/16/18 09:18 07/16/18 08:40 - Medications Medications: Current Medications Acetaminophen (Tylenol 325mg Tab) 650 mg PO Q6 PRN PRN Reason: Pain, Mild (1-3) Alprazolam (Xanax) 0.5 mg PO Q12 PRN PRN Reason: Anxiety Last Admin: 07/15/18 09:58 Dose: 0.5 mg Atorvastatin Calcium (Lipitor) 20 mg PO DAILY [facility] Last Admin: 07/16/18 09:18 Dose: Not Given Furosemide (Lasix) 20 mg PO DAILY [facility] Last Admin: 07/16/18 09:18 Dose: Not Given Piperacillin Sod/Tazobactam (Sod 3.375 gm/ Sodium Chloride) 100 mls @ 100 mls/hr IVPB Q12 [facility]; Protocol Last Admin: 07/16/18 13:44 Dose: Not Given Potassium Chloride/Dextrose/Sod Cl (Potassium Chl 20 Meq In D5-1/2ns) 1,000 mls @ 50 mls/hr IV .Q20H [facility] Stop: 07/16/18 22:26 Last Admin: 07/15/18 22:50 Dose: 50 mls/hr Vancomycin HCl 1 gm/ Sodium (Chloride) 250 mls @ 166.667 mls/hr IVPB DAILY [facility]; Protocol Losartan Potassium (Cozaar) 50 mg PO DAILY [facility] Last Admin: 07/16/18 09:17 Dose: Not Given Metoprolol Succinate (Toprol Xl) 25 mg PO DAILY [facility] Last Admin: 07/16/18 09:18 Dose: Not Given Morphine Sulfate (Morphine) 1 mg IVP Q4 PRN PRN Reason: Pain, severe (8-10) Last Admin: 07/15/18 05:23 Dose: 1 mg Multivitamins/Minerals (Therapeutic-M Tab) 1 tab PO DAILY [facility] Last Admin: 07/16/18 09:18 Dose: Not Given Ondansetron HCl (Zofran Inj) 4 mg IVP Q6 PRN PRN Reason: Nausea/Vomiting Last Admin: 07/16/18 06:24 Dose: 4 mg Oxycodone/Acetaminophen (Percocet 5/325 Mg Tab) 1 tab PO Q8 PRN PRN Reason: Pain, moderate (4-7) Stop: 07/18/18 04:57 Last Admin: 07/16/18 09:16 Dose: 1 tab Sertraline HCl (Zoloft) 50 mg PO HS [facility] Last Admin: 07/15/18 21:59 Dose: Not Given - Labs Labs: 07/16/18 06:05 07/16/18 06:05 PT 13.7 Seconds (9.8-13.1) H 07/14/18 16:16 INR 1.2 07/14/18 16:16 APTT 46.0 Seconds (25.6-37.1) H 07/14/18 16:16 Assessment and Plan (1) Finger infection Status: Acute (2) Abscess Status: Acute (3) Cardiomyopathy Status: Chronic (4) CHF (congestive heart failure) Status: Chronic
[2018-07-16] MEDS: Piperacillin/Tazobact 3.375 GM in Sodium Chloride 0.9% 100 ML IVPB SCH ×2 (13:44→15:02)
[2018-07-16] MEDS: Potassium Ch 20mEq in D5-1/2NS 1,000 ML IV SCH (18:46)
[2018-07-16] MEDS ORDERED: Iodixanol 320 MG/ML 100 ML BOTTLE IV ONE (18:49)
[2018-07-17] MEDS: Oxycodone/Acetaminophen 5/325 mg Tab PO PRN (00:04)
[2018-07-17] MEDS: Piperacillin/Tazobact 3.375 GM in Sodium Chloride 0.9% 100 ML IVPB SCH ×2 (02:42→16:17)
[2018-07-17 07:12] LABS: HEMOGLOBIN 11.8 g/dL (12.0-16.0); MEAN CELL VOLUME 95.1 fl (81.0-99.0); MEAN CORPUSCULAR HEMOGLOBIN 31.7 pg (27.0-31.0); MEAN CORPUSCULAR HGB CONC 33.4 g/dL (33.0-37.0); RBC 3.73 Mil/uL (3.80-5.20); RED CELL DISTRIBUTION WIDTH 14.8 % (11.5-14.5); WHITE BLOOD COUNT 11.3 K/uL (4.8-10.8)
[2018-07-17 07:23] LABS: BLOOD UREA NITROGEN 19 mg/dl (7-17); CALCIUM 9.2 mg/dL (8.4-10.2); GFR NON-AFRICAN AMERICAN 55
[2018-07-17] MEDS ORDERED: Phenylephrine 10 mg/ml Inj ONE (07:56)
[2018-07-17] MEDS ORDERED: Midazolam 2 MG/2 ML VIAL ONE (07:56)
[2018-07-17] MEDS ORDERED: Etomidate 20 mg/10ml Inj IV ONE (07:56)
[2018-07-17] MEDS ORDERED: ePHEDrine 50 mg/ml Inj ONE (07:56)
[2018-07-17] MEDS ORDERED: Bupivacaine 0.5% Inj(30mL) ONE (07:59)
[2018-07-17] MEDS ORDERED: Sodium Chloride 0.9% 10 ML IV ONE (07:59)
[2018-07-17] MEDS ORDERED: Lidocaine 1% Inj (20ml) ONE (07:59)
[2018-07-17] MEDS ORDERED: Lidocaine 1% w Epi 1:100,000 Inj ONE (08:00)
[2018-07-17] MEDS ORDERED: Lactated Ringer's 1,000 ML IV ONE (08:00)
[2018-07-17] MEDS ORDERED: Lidocaine/Epi 1% 1:100000 20 ML IJ ONE (08:20)
[2018-07-17] MEDS ORDERED: Bupivacaine 0.5% 50 ML IJ ONE (08:20)
[2018-07-17] MEDS ORDERED: Propofol 10 mg/ml Inj (20 ML) ONE (08:27)
--- NOTE | 2018-07-17 08:59 | PCM.SURG1 ---
Surgeon's Initial Post Op Note - Surgeon's Notes Surgeon: Sascha Miller MD Analytic Manager: Logan PGY3 Pre-Operative Diagnosis: Right 4th finger digit abscess/necrosis Operative Findings: Right 4th finger digit abscess/necrosis Post-Operative Diagnosis: Right 4th finger digit abscess/necrosis Operation Performed: Right 4th distal finger digit amputation with flap creation Specimen/Specimens Removed: Right 4th finger digit abscess/necrosis Estimated Blood Loss: EBL {In ML}: 1 Date of Surgery/Procedure: 07/17/18 Time of Surgery/Procedure: 08:59
[2018-07-17] MEDS: Multivitamin With Minerals Tab PO SCH (09:47)
[2018-07-17] MEDS: Metoprolol Succinate 25 mg XL Tab PO SCH (09:48)
--- NOTE | 2018-07-17 10:15 | CP.PCM.PN ---
Subjective - Date & Time of Evaluation Date of Evaluation: 07/17/18 Time of Evaluation: 11:43 - Subjective Subjective: 68 year old female with PMHx of arthritis, asthma, hypertension, mixed hyperlipidemia, pneumonia, and CHF with rLVEF was admitted from the emergency room with an abscess/necrosis of the distal phalanx 4th digit of the right hand. Patient is POD0 s/p right 4th digit partial amputation. Patient was seen in PACU, and denied any complaints of headaches, dizziness, nausea or vomiting. Patient states her pain was controlled. Objective - Vital Signs/Intake and Output Vital Signs (last 24 hours): Temp Pulse Resp BP Pulse Ox 97.6 F 62 20 93/50 L 100 07/17/18 09:30 07/17/18 09:30 07/17/18 09:30 07/17/18 09:30 07/17/18 09:30 Intake and Output: 07/17/18 07/17/18 06:59 18:59 Intake Total 75 Balance 75 - Medications Medications: Current Medications Acetaminophen (Tylenol 325mg Tab) 650 mg PO Q6 PRN PRN Reason: Pain, Mild (1-3) Alprazolam (Xanax) 0.5 mg PO Q12 PRN PRN Reason: Anxiety Last Admin: 07/15/18 09:58 Dose: 0.5 mg Atorvastatin Calcium (Lipitor) 20 mg PO DAILY [facility] Last Admin: 07/17/18 09:47 Dose: Not Given Furosemide (Lasix) 20 mg PO DAILY [facility] Last Admin: 07/17/18 09:47 Dose: Not Given Vancomycin HCl 1 gm/ Sodium (Chloride) 250 mls @ 166.667 mls/hr IVPB DAILY [facility]; Protocol Piperacillin Sod/Tazobactam (Sod 3.375 gm/ Sodium Chloride) 100 mls @ 100 mls/hr IVPB Q12@0300,1500 [facility]; Protocol Last Admin: 07/17/18 02:42 Dose: 100 mls/hr Losartan Potassium (Cozaar) 50 mg PO DAILY [facility] Last Admin: 07/17/18 09:47 Dose: Not Given Metoprolol Succinate (Toprol Xl) 25 mg PO DAILY [facility] Last Admin: 07/17/18 09:48 Dose: Not Given Morphine Sulfate (Morphine) 1 mg IVP Q4 PRN PRN Reason: Pain, severe (8-10) Last Admin: 07/15/18 05:23 Dose: 1 mg Morphine Sulfate (Morphine) 2 mg IVP Q10M PRN PRN Reason: Pain, severe (8-10) Stop: 07/17/18 11:02 Multivitamins/Minerals (Therapeutic-M Tab) 1 tab PO DAILY [facility] Last Admin: 07/17/18 09:47 Dose: Not Given Ondansetron HCl (Zofran Inj) 4 mg IVP Q6 PRN PRN Reason: Nausea/Vomiting Last Admin: 07/16/18 06:24 Dose: 4 mg Ondansetron HCl (Zofran Inj) 4 mg IVP ONCE PRN PRN Reason: Nausea/Vomiting Stop: 07/17/18 11:02 Oxycodone/Acetaminophen (Percocet 5/325 Mg Tab) 1 tab PO Q8 PRN PRN Reason: Pain, moderate (4-7) Stop: 07/18/18 04:57 Last Admin: 07/17/18 00:04 Dose: 1 tab Sertraline HCl (Zoloft) 50 mg PO HS [facility] Last Admin: 07/16/18 21:35 Dose: Not Given - Labs Labs: 07/17/18 06:50 07/17/18 06:50 PT 13.7 Seconds (9.8-13.1) H 07/14/18 16:16 INR 1.2 07/14/18 16:16 APTT 46.0 Seconds (25.6-37.1) H 07/14/18 16:16 - Constitutional Appears: Well, Non-toxic - Head Exam Head Exam: ATRAUMATIC - Eye Exam Eye Exam: Normal appearance - Respiratory Exam Respiratory Exam: Clear to Ausculation Bilateral, NORMAL BREATHING PATTERN. absent: Rales - Cardiovascular Exam Cardiovascular Exam: REGULAR RHYTHM, +S1 - GI/Abdominal Exam GI & Abdominal Exam: Soft, Normal Bowel Sounds. absent: Firm, Guarding, Rigid - Extremities Exam Additional comments: dressing noted to the right 4th digit, clean dry and intact - Neurological Exam Neurological Exam: Alert, Awake, Oriented x3 Assessment and Plan - Assessment and Plan (Free Text) Assessment: 68 year old female with PMHx of arthritis, asthma, hypertension, mixed hyperlipidemia, pneumonia, and CHF with rLVEF was admitted from the emergency room with an abscess/necrosis of the distal phalanx 4th digit of the right hand. Patient is POD0 s/p right 4th digit partial amputation. Patient was seen in PACU, and denied any complaints of headaches, dizziness, nausea or vomiting. Patient states her pain was controlled. Patient hypotensive in PACU, and transferred to Telemetry for further observation Plan: Right 4th digit finger abscess and necrosis - acute, symptomatic - Afebrile, WBC of 11.3 - Right Hand X-ray: focal soft tisue swelling, air within the subungual space 4th digit, bony resorption identified at this and other levels - Blood Cultures : no growth after 48 hours - started on Vancomycin 1 gm IV and Zosyn 3.375 gm IV - Vanc restarted today - Pain control - Surgical consult, Dr. Miller- patient POD0 partial right 4th digit amputation - Infectious Disease consult- Dr. Holloway, recommends Bactrim DS for 2 weeks upon discharge HTN - chronic, asymptomatic - continue with home meds - Cardiology consult, Dr. Osorio- recommendations appreciated Arthritis - chronic, asymptomatic - continue with home meds - CAROLE screen positive, CAROLE titer high, pending SCL-70 and a-pm - to be followed up as outpatient Asthma - chronic, asymptomatic - continue with home meds Hyperlipidemia - chronic, asymptomatic - continue with home meds Hydronephrosis - Renal Ultrasound- hydronephrosis bilaterally right greater than left, unilateral right renal calculi none larger than 5 mm CHF with rLVEF - chronic, asymptomatic - continue with home meds - Cardiology consult, Dr. Osorio- recommendations appreciated - Extremity US: severe arterial disease at the right upper extremity potentially throughout all arteries, but equally likely at the proximal subclavian artery or even distal brachycephalic artery, consider follow up CT - CT: no occlusion, rupture or dissection to RUE, cellulitic changes with associated ostelytic changes of the distal tuft Peripheral Vascular Disease - Extremity US: severe arterial disease at the right upper extremity potentially throughout all arteries, but equally likely at the proximal subclavian artery or even distal brachycephalic artery, consider follow up CT - CT: no occlusion, rupture or dissection to RUE, cellulitic changes with associated ostelytic changes of the distal tuft ? Hx of Depression/Anxiety - asymptomatic - Sertraline, Xanax DVT Prophylaxis - SCDs for now
--- NOTE | 2018-07-17 12:50 | CT ---
Date of service: 07/16/2018 PROCEDURE: HISTORY: RIGHT ARM pain COMPARISON: TECHNIQUE: 2.5 millimeter contiguous transaxial sections obtained from the shoulder to the wrist were obtained following intravenous administration of contrast. Sagittal coronal reformatted images also obtained. Contrast: Visipaque 320 Radiation: 482.26 mGy-cm FINDINGS: Flow seen within the axillary artery, brachial artery, radial artery interosseous artery, and ulnar artery. While the brachial artery appears diffusely tapered, there is no definable stenosis seen. Resolution at the level of the elbow and forearm is poor. No significant stenosis identified in the radial artery. Characterization of the ulnar artery and interosseous artery is very limited IMPRESSION: The axillary, brachial artery, radial artery, ulnar artery and interosseous artery are patent. Resolution of radial artery, ulnar interosseous artery low is limited. The is patent. No definable stenosis seen ulnar artery, brachial or axillary artery.
--- NOTE | 2018-07-17 13:41 | CP.PCM.PN ---
<Cristian Gee - Last Filed: 07/17/18 14:12> Subjective - Date & Time of Evaluation Date of Evaluation: 07/17/18 Time of Evaluation: 11:00 - Subjective Subjective: pt seen and examined at bedside s/p amputation of distal R 4th digit. Pt denies pain of digit. Breathing well on room air. Objective - Vital Signs/Intake and Output Vital Signs (last 24 hours): Temp Pulse Resp BP Pulse Ox 97.5 F L 63 20 102/56 L 100 07/17/18 11:45 07/17/18 11:45 07/17/18 11:45 07/17/18 11:45 07/17/18 11:45 Intake and Output: 07/17/18 07/17/18 06:59 18:59 Intake Total 75 Balance 75 - Medications Medications: Current Medications Acetaminophen (Tylenol 325mg Tab) 650 mg PO Q6 PRN PRN Reason: Pain, Mild (1-3) Alprazolam (Xanax) 0.5 mg PO Q12 PRN PRN Reason: Anxiety Last Admin: 07/15/18 09:58 Dose: 0.5 mg Atorvastatin Calcium (Lipitor) 20 mg PO DAILY [facility] Last Admin: 07/17/18 09:47 Dose: Not Given Furosemide (Lasix) 20 mg PO DAILY [facility] Last Admin: 07/17/18 09:47 Dose: Not Given Vancomycin HCl 1 gm/ Sodium (Chloride) 250 mls @ 166.667 mls/hr IVPB DAILY [facility]; Protocol Piperacillin Sod/Tazobactam (Sod 3.375 gm/ Sodium Chloride) 100 mls @ 100 mls/hr IVPB Q12@0300,1500 [facility]; Protocol Last Admin: 07/17/18 02:42 Dose: 100 mls/hr Losartan Potassium (Cozaar) 50 mg PO DAILY [facility] Last Admin: 07/17/18 09:47 Dose: Not Given Metoprolol Succinate (Toprol Xl) 25 mg PO DAILY [facility] Last Admin: 07/17/18 09:48 Dose: Not Given Morphine Sulfate (Morphine) 1 mg IVP Q4 PRN PRN Reason: Pain, severe (8-10) Last Admin: 07/15/18 05:23 Dose: 1 mg Multivitamins/Minerals (Therapeutic-M Tab) 1 tab PO DAILY [facility] Last Admin: 07/17/18 09:47 Dose: Not Given Ondansetron HCl (Zofran Inj) 4 mg IVP Q6 PRN PRN Reason: Nausea/Vomiting Last Admin: 07/16/18 06:24 Dose: 4 mg Oxycodone/Acetaminophen (Percocet 5/325 Mg Tab) 1 tab PO Q8 PRN PRN Reason: Pain, moderate (4-7) Stop: 07/18/18 04:57 Last Admin: 07/17/18 00:04 Dose: 1 tab Sertraline HCl (Zoloft) 50 mg PO HS [facility] Last Admin: 07/16/18 21:35 Dose: Not Given - Labs Labs: 07/17/18 06:50 07/17/18 06:50 PT 13.7 Seconds (9.8-13.1) H 07/14/18 16:16 INR 1.2 07/14/18 16:16 APTT 46.0 Seconds (25.6-37.1) H 07/14/18 16:16 - Constitutional Appears: No Acute Distress - Eye Exam Eye Exam: EOMI - ENT Exam ENT Exam: Mucous Membranes Moist - Respiratory Exam Respiratory Exam: Clear to Ausculation Bilateral, NORMAL BREATHING PATTERN. absent: Wheezes - Cardiovascular Exam Cardiovascular Exam: REGULAR RHYTHM, +S1, +S2 - GI/Abdominal Exam GI & Abdominal Exam: Soft. absent: Tenderness - Neurological Exam Neurological Exam: Alert, Awake, CN II-XII Intact - Psychiatric Exam Psychiatric exam: Normal Affect, Normal Mood Assessment and Plan (1) Cardiomyopathy Status: Chronic (2) Abscess Status: Acute (3) Finger infection Status: Acute (4) CHF (congestive heart failure) Status: Chronic - Assessment and Plan (Free Text) Assessment: 68 yo F with pmhx of arthritis, asthma, hypertension, mixed hyperlipidemia, pneumonia, and CHF with rLVEF was admitted with an abscess/necrosis of the distal phalanx 4th digit of the right hand POD1 amputation of distal phalanx 4th digit of the right hand Plan: Pt s/p amputation of R: 4th distal digit 2/2 necrosis. Labs, imaging and team notes reviewed IVABX: Zosyn; vanc held for today. Breathing well on RA Afebrile Continue management per hospitalist and specialist team; further recs appreciated Pt likely with underlying collagen vascular disease: -DS DNA neg -f/u: CAROLE, ANTI-PM/SCL-100AB, SCL-70 AB f/u vancomycin trough in AM f/u upper extremity angio: official report pending Future planning; per cardio Dr. Gianfranco Osorio: pt will require f/u with vascular specialist Case and plan d/w Dr. Kilo Gee MD PGY-2 <Fortunato Boateng - Last Filed: 07/17/18 15:19> Subjective - Subjective Subjective: The patient was seen and examined with resident. Physical findings and interim events were all reviewed. Diagnoses and plan of care were formulated. The EMR entry by the resident accurately reflects today's activities. Objective - Vital Signs/Intake and Output Vital Signs (last 24 hours): Temp Pulse Resp BP Pulse Ox 97.7 F 64 18 91/59 L 100 07/17/18 13:00 07/17/18 13:00 07/17/18 13:00 07/17/18 13:00 07/17/18 13:00 Intake and Output: 07/17/18 07/17/18 11:59 23:59 Intake Total 75 Balance 75 - Medications Medications: Current Medications Acetaminophen (Tylenol 325mg Tab) 650 mg PO Q6 PRN PRN Reason: Pain, Mild (1-3) Alprazolam (Xanax) 0.5 mg PO Q12 PRN PRN Reason: Anxiety Last Admin: 07/15/18 09:58 Dose: 0.5 mg Atorvastatin Calcium (Lipitor) 20 mg PO DAILY [facility] Last Admin: 07/17/18 09:47 Dose: Not Given Furosemide (Lasix) 20 mg PO DAILY [facility] Last Admin: 07/17/18 09:47 Dose: Not Given Vancomycin HCl 1 gm/ Sodium (Chloride) 250 mls @ 166.667 mls/hr IVPB DAILY [facility]; Protocol Piperacillin Sod/Tazobactam (Sod 3.375 gm/ Sodium Chloride) 100 mls @ 100 mls/hr IVPB Q12@0300,1500 [facility]; Protocol Last Admin: 07/17/18 02:42 Dose: 100 mls/hr Losartan Potassium (Cozaar) 50 mg PO DAILY [facility] Last Admin: 07/17/18 09:47 Dose: Not Given Metoprolol Succinate (Toprol Xl) 25 mg PO DAILY [facility] Last Admin: 07/17/18 09:48 Dose: Not Given Morphine Sulfate (Morphine) 1 mg IVP Q4 PRN PRN Reason: Pain, severe (8-10) Last Admin: 07/15/18 05:23 Dose: 1 mg Multivitamins/Minerals (Therapeutic-M Tab) 1 tab PO DAILY [facility] Last Admin: 07/17/18 09:47 Dose: Not Given Ondansetron HCl (Zofran Inj) 4 mg IVP Q6 PRN PRN Reason: Nausea/Vomiting Last Admin: 07/16/18 06:24 Dose: 4 mg Oxycodone/Acetaminophen (Percocet 5/325 Mg Tab) 1 tab PO Q8 PRN PRN Reason: Pain, moderate (4-7) Stop: 07/18/18 04:57 Last Admin: 07/17/18 00:04 Dose: 1 tab Sertraline HCl (Zoloft) 50 mg PO HS [facility] Last Admin: 07/16/18 21:35 Dose: Not Given - Labs Labs: 07/17/18 06:50 07/17/18 06:50 PT 13.7 Seconds (9.8-13.1) H 07/14/18 16:16 INR 1.2 07/14/18 16:16 APTT 46.0 Seconds (25.6-37.1) H 07/14/18 16:16 Assessment and Plan (1) Finger infection Status: Acute (2) Abscess Status: Acute (3) Cardiomyopathy Status: Chronic (4) CHF (congestive heart failure) Status: Chronic
[2018-07-18] MEDS: Piperacillin/Tazobact 3.375 GM in Sodium Chloride 0.9% 100 ML IVPB SCH (02:34)
[2018-07-18 05:38] VITALS: O2SAT 99
--- NOTE | 2018-07-18 08:20 | CP.PCM.PN ---
Subjective - Date & Time of Evaluation Date of Evaluation: 07/18/18 Time of Evaluation: 07:00 - Subjective Subjective: Hand surgery progress note for Dr. Miller Pt seen and examined this AM. No adverse events overnight, no fevers, patient complains of persistent pain in the finger well controlled on current medications. Patient is eager to go home Objective - Vital Signs/Intake and Output Vital Signs (last 24 hours): Temp Pulse Resp BP Pulse Ox 98.0 F 61 18 142/69 99 07/18/18 05:37 07/18/18 05:37 07/18/18 05:37 07/18/18 05:37 07/18/18 05:37 - Medications Medications: Current Medications Acetaminophen (Tylenol 325mg Tab) 650 mg PO Q6 PRN PRN Reason: Pain, Mild (1-3) Alprazolam (Xanax) 0.5 mg PO Q12 PRN PRN Reason: Anxiety Last Admin: 07/15/18 09:58 Dose: 0.5 mg Aspirin (Aspirin Chewable) 81 mg PO DAILY [facility] Atorvastatin Calcium (Lipitor) 20 mg PO DAILY [facility] Last Admin: 07/17/18 09:47 Dose: Not Given Furosemide (Lasix) 20 mg PO DAILY [facility] Last Admin: 07/17/18 09:47 Dose: Not Given Vancomycin HCl 1 gm/ Sodium (Chloride) 250 mls @ 166.667 mls/hr IVPB DAILY [facility]; Protocol Piperacillin Sod/Tazobactam (Sod 3.375 gm/ Sodium Chloride) 100 mls @ 100 mls/hr IVPB Q12@0300,1500 [facility]; Protocol Last Admin: 07/18/18 02:34 Dose: 100 mls/hr Losartan Potassium (Cozaar) 50 mg PO DAILY [facility] Last Admin: 07/17/18 09:47 Dose: Not Given Metoprolol Succinate (Toprol Xl) 25 mg PO DAILY [facility] Last Admin: 07/17/18 09:48 Dose: Not Given Morphine Sulfate (Morphine) 1 mg IVP Q4 PRN PRN Reason: Pain, severe (8-10) Last Admin: 07/15/18 05:23 Dose: 1 mg Multivitamins/Minerals (Therapeutic-M Tab) 1 tab PO DAILY [facility] Last Admin: 07/17/18 09:47 Dose: Not Given Ondansetron HCl (Zofran Inj) 4 mg IVP Q6 PRN PRN Reason: Nausea/Vomiting Last Admin: 07/16/18 06:24 Dose: 4 mg Sertraline HCl (Zoloft) 50 mg PO HS [facility] Last Admin: 07/17/18 22:40 Dose: Not Given - Labs Labs: 07/17/18 06:50 07/17/18 06:50 PT 13.7 Seconds (9.8-13.1) H 07/14/18 16:16 INR 1.2 07/14/18 16:16 APTT 46.0 Seconds (25.6-37.1) H 07/14/18 16:16 - Constitutional Appears: Well, Non-toxic, No Acute Distress - Head Exam Head Exam: ATRAUMATIC, NORMOCEPHALIC - Eye Exam Eye Exam: Normal appearance. absent: Conjunctival injection, Scleral icterus - ENT Exam ENT Exam: Mucous Membranes Moist, Normal Oropharynx - Respiratory Exam Respiratory Exam: NORMAL BREATHING PATTERN. absent: Accessory Muscle Use, Respiratory Distress - Cardiovascular Exam Cardiovascular Exam: RRR - GI/Abdominal Exam GI & Abdominal Exam: absent: Distended - Extremities Exam Additional comments: right ring finger with bandage in place with no saturation, no surrounding erythema or fluctuance. full active ROM with some subjective pain - Neurological Exam Neurological Exam: Alert, Awake, Oriented x3 - Psychiatric Exam Psychiatric exam: Normal Affect, Normal Mood - Skin Skin Exam: Dry, Normal Color, Warm Assessment and Plan - Assessment and Plan (Free Text) Assessment: 68F with necrosis of the right ring finger POD #1 s/p amputation with flap advancement Plan: Patient is clear for discharge from a surgical standpoint with PO antibiotics per primary and PO pain medication Follow up in the surgery clinic in [facility] in 1 week for dressing change and evaluation No further surgical intervention at this time--will follow while inpatient Discussed with Dr. Nolan, Monse Peterson, PGY2
--- NOTE | 2018-07-18 08:28 | CP.PCM.DIS ---
Provider - Provider Date of Admission: 07/14/18 16:25 Attending physician: Leanna Zurita DO Primary care physician: Dr. Boateng, - PMD Dr. Osroio- Coupling Machine Operator Dr. Holloway- Infectious Disease Consults: 07/14/18 16:26 Plastic Surgery Consult Stat Comment: Consulting Provider: Sascha Miller Consulting Physician: Sascha Miller Reason for Consult: Necrotic finger 07/14/18 17:22 Physician Consult Stat Comment: Consulting Provider: Fortunato Boateng Consulting Physician: Fortunato Boateng Reason for Consult: right 4th digit necrotic wound 07/15/18 08:40 Cardiology Consult Routine Comment: Consulting Provider: Torito Osorio V Consulting Physician: Torito Osorio V Reason for Consult: CHF, clearance for possible procedure Infectious Disease Consult Routine Comment: Consulting Provider: Gianni Holloway Consulting Physician: Gianni Holloway Reason for Consult: 4th digit necrosis with abcess 07/16/18 12:33 Physician Consult Routine Comment: Consulting Provider: Scott Lira Consulting Physician: Scott Lira Reason for Consult: CTA of the Right Upper Extremity Additional Comments: Requesting CTA of the right upper extremity for vascular assessment Time Spent in preparation of Discharge (in minutes): 30 Hospital Course - Lab Results Lab Results: Micro Results 07/14/18 16:45 Blood-Venous Blood Culture - Preliminary NO GROWTH AFTER 3 DAYS 07/14/18 16:16 Blood-Venous Blood Culture - Preliminary NO GROWTH AFTER 3 DAYS Most Recent Lab Values WBC 11.3 K/uL (4.8-10.8) H 07/17/18 06:50 RBC 3.73 Mil/uL (3.80-5.20) L 07/17/18 06:50 Hgb 11.8 g/dL (12.0-16.0) L 07/17/18 06:50 Hct 35.5 % (34.0-47.0) 07/17/18 06:50 MCV 95.1 fl (81.0-99.0) 07/17/18 06:50 MCH 31.7 pg (27.0-31.0) H 07/17/18 06:50 MCHC 33.4 g/dL (33.0-37.0) 07/17/18 06:50 RDW 14.8 % (11.5-14.5) H 07/17/18 06:50 Plt Count 209 K/uL (130-400) 07/17/18 06:50 MPV 8.7 fl (7.2-11.7) 07/15/18 06:00 Neut % (Auto) 66.3 % (50.0-75.0) 07/15/18 06:00 Lymph % (Auto) 19.8 % (20.0-40.0) L 07/15/18 06:00 Barbour % (Auto) 7.5 % (0.0-10.0) 07/15/18 06:00 Eos % (Auto) 5.9 % (0.0-4.0) H 07/15/18 06:00 Baso % (Auto) 0.5 % (0.0-2.0) 07/15/18 06:00 Neut # (Auto) 9.0 K/uL (1.8-7.0) H 07/15/18 06:00 Lymph # (Auto) 2.7 K/uL (1.0-4.3) 07/15/18 06:00 Barbour # (Auto) 1.0 K/uL (0.0-0.8) H 07/15/18 06:00 Eos # (Auto) 0.8 K/uL (0.0-0.7) H 07/15/18 06:00 Baso # (Auto) 0.1 K/uL (0.0-0.2) 07/15/18 06:00 ESR 18 mm/hr (0-30) 07/15/18 09:03 PT 13.7 Seconds (9.8-13.1) H 07/14/18 16:16 INR 1.2 07/14/18 16:16 APTT 46.0 Seconds (25.6-37.1) H 07/14/18 16:16 Sodium 138 mmol/l (132-148) 07/17/18 06:50 Potassium 4.9 MMOL/L (3.6-5.0) 07/17/18 06:50 Chloride 101 mmol/L (98-107) 07/17/18 06:50 Carbon Dioxide 27 mmol/L (22-30) 07/17/18 06:50 Anion Gap 15 (10-20) 07/17/18 06:50 BUN 19 mg/dl (7-17) H 07/17/18 06:50 Creatinine 1.0 mg/dl (0.7-1.2) 07/17/18 06:50 Est GFR ( Amer) > 60 07/17/18 06:50 Est GFR (Non-Af Amer) 55 07/17/18 06:50 Random Glucose 101 mg/dL (65-105) 07/17/18 06:50 Calcium 9.2 mg/dL (8.4-10.2) 07/17/18 06:50 Total Bilirubin 0.5 mg/dl (0.2-1.3) 07/15/18 06:00 AST 42 U/L (14-36) H 07/15/18 06:00 ALT 34 U/L (9-52) 07/15/18 06:00 Alkaline Phosphatase 109 U/L (38-126) 07/15/18 06:00 Total Protein 7.3 G/DL (6.3-8.2) 07/15/18 06:00 Albumin 3.7 g/dL (3.5-5.0) 07/15/18 06:00 Globulin 3.6 gm/dL (2.2-3.9) 07/15/18 06:00 Albumin/Globulin Ratio 1.0 (1.0-2.1) 07/15/18 06:00 Vancomycin Trough 10.6 ug/mL (5.0-10.0) H 07/18/18 05:35 CAROLE Screen Positive (Negative) H 07/15/18 09:35 CAROLE Titer 1:640 Titer (<1:40) H 07/15/18 09:35 CAROLE Pattern Centromere H 07/15/18 09:35 Double Strand DNA Ab <1 IU/mL 07/15/18 09:35 HIV 1&2 Antibody Screen Negative (NEGATIVE) 07/16/18 05:40 - Hospital Course Hospital Course: 68 y/o female with PMHx of HTN, dyslipidemia, Asthma, Arthritis, CHF presented with right hand fourth digit distal phalanx infection and necrosis. Patient is POD1 s/p right distal 4th digit amputation. Patient dressing clean, dry and intact. Patient to follow up with surgery clinic within 1 week. Patient to continue 2 weeks of Bactrim DS Q12 DAILY. Patient completed Vancomycin and Zosyn while here. Patient had hypotensive episode while in surgery, however, patient blood pressure stable at this time, was minotred in Telemetry. Right 4th digit finger abscess and necrosis - acute, symptomatic - Afebrile, absent leuko - Right Hand X-ray: focal soft tisue swelling, air within the subungual space 4th digit, bony resorption identified at this and other levels - Blood Cultures : no growth after 48 hours - completed IV Vanc and Zosyn - Rx percocet Q4 for 5 days, pain control - Rx Bactrim 2 week Q12 DAILY - Surgical consult, Dr. Miller- patient POD1 partial right 4th digit amputation, patient to follow up in the [facility] surgery clinic in 1 week - Infectious Disease consult- Dr. Holloway, recommends Bactrim DS for 2 weeks upon discharge HTN - chronic, asymptomatic - continue with home meds- ASA, statin, Metropolol - Cardiology consult, Dr. Osorio- recommendations appreciated Arthritis - chronic, asymptomatic - continue with home meds - CAROLE screen positive, CAROLE titer high, pending SCL-70 and a-pm - to be followed up as outpatient Asthma - chronic, asymptomatic - continue with home meds Hyperlipidemia - chronic, asymptomatic - continue with home meds Hydronephrosis - bilateral, mild - Renal Ultrasound- hydronephrosis bilaterally right greater than left, unilateral right renal calculi none larger than 5 mm CHF with rLVEF - chronic compensated, asymptomatic - continue with home meds - Cardiology consult, Dr. Osorio- recommendations appreciated - Extremity US: severe arterial disease at the right upper extremity potentially throughout all arteries, but equally likely at the proximal subclavian artery or even distal brachycephalic artery, consider follow up CT - CT: no occlusion, rupture or dissection to RUE, cellulitic changes with associated ostelytic changes of the distal tuft Peripheral Vascular Disease - Extremity US: severe arterial disease at the right upper extremity potentially throughout all arteries, but equally likely at the proximal subclavian artery or even distal brachycephalic artery, consider follow up CT - CT: no occlusion, rupture or dissection to RUE, cellulitic changes with associated ostelytic changes of the distal tuft ? Hx of Depression/Anxiety - asymptomatic - continue home meds Sertraline, Xanax Cachexia - BMI 18 - lifestyle modifications recommended - Date & Time of H&P Date of H&P: 07/18/18 Time of H&P: 09:16 Discharge Exam - Head Exam Head Exam: ATRAUMATIC, NORMOCEPHALIC - Eye Exam Eye Exam: Normal appearance - ENT Exam ENT Exam: Mucous Membranes Moist - Neck Exam Neck exam: Full Rom - Respiratory Exam Respiratory Exam: Clear to PA & Lateral, NORMAL BREATHING PATTERN. absent: Rales, Rhonchi, Wheezes - Cardiovascular Exam Cardiovascular Exam: REGULAR RHYTHM, +S1, +S2 - GI/Abdominal Exam GI & Abdominal Exam: Normal Bowel Sounds. absent: Distended, Firm, Guarding - Extremities Exam Extremities exam: normal capillary refill Additional comments: amputation of the right 4th distal digit, dressing in place, clean dry and intact - Back Exam Back exam: absent: CVA tenderness (L), CVA tenderness (R) - Neurological Exam Neurological exam: Alert, Oriented x3 - Psychiatric Exam Psychiatric exam: Normal Affect, Normal Mood - Skin Skin Exam: Normal Color Discharge Plan - Discharge Medications Prescriptions: Aspirin [Aspirin Chewable] 81 mg PO DAILY #30 chew Atorvastatin [Lipitor] 20 mg PO DAILY #30 tab Furosemide [Lasix] 20 mg PO DAILY #30 tab Losartan [Cozaar] 50 mg PO DAILY #30 tab Metoprolol Succinate XL [Toprol XL] 25 mg PO DAILY #30 tab oxyCODONE/Acetaminophen [Percocet 5/325 mg Tab] 1 ea PO Q4 #30 tab Sulfamethoxazole/Trimethoprim [Bactrim DS 800 mg-160 mg] 1 tab PO Q12 #28 tab - Follow Up Plan Condition: FAIR Disposition: HOME/ ROUTINE Patient education suggested?: Yes Instructions: Wound Care (DC), Cellulitis (DC), Abscess (GEN) Additional Instructions: follow up with primary MD 1 week Follow up in surgery clinic in [place] for follow up in 1 week--call to make appointment at [phone] and ask for surgery clinic scheduling Referrals: Torito Osorio MD [Staff Provider] - Fortunato Boateng MD [Staff Provider] - Sascha Miller MD [Staff Provider] -
[2018-07-18 08:46] VITALS: BP 136/62; PULSE 63; RESP 20; TEMP 98.3
[2018-07-18] MEDS: Multivitamin With Minerals Tab PO SCH (09:25)
[2018-07-18] MEDS: Metoprolol Succinate 25 mg XL Tab PO SCH (09:25)
[2018-07-20 20:37] LABS: SCL-70 ANTIBODY <1.0 AI (<1.0)
--- NOTE | 2018-07-23 04:45 | OP ---
PROCEDURE DATE: 07/16/2018 LOCATION: [facility]. PREOPERATIVE DIAGNOSES: 1. Abscess, right finger. 2. Necrosis of right ring finger. POSTOPERATIVE DIAGNOSES: 1. Abscess, right finger. 2. Necrosis of right ring finger. PROCEDURE: Partial amputation in right ring finger. SURGEON: Sascha Miller MD GARDEN WORKER SURGEON: Alberto Ford DO CLINICAL NOTE: This 68-year-old female presented to the [facility] Emergency Room on 07/14/2018. At this presentation, she had romeo necrosis of the tip of the right ring finger with associated purulent drainage. Because management of the injury was outside the constituency of the emergency room department, a plastic surgery consult was called. The patient was admitted and commenced on intravenous antibiotics bringing infection under control and allow the area of necrosis to demarcate so that, 1. An open amputation would not have to be performed. 2. As much finger length as possible could be preserved with primary closure of the amputation which would thereby save the patient a second trip to the operating room for closure of the open amputation. Informed consent outlining potential risks of failure and complications related to the proposed surgical repair was required prior to amputation, and the patient was scheduled for surgery the following day. At that time, the patient was generally noncompliant and aggressive during her admission. Appeared to be unclear as to the nature and purpose of the surgery. Since the problem was not life threatening, the surgery was delayed to the following day when the patient understood the necessity for amputation and agreed to surgery. No guarantee of outcome was provided to the patient. The patient was commenced on intravenous antibiotics prior to surgery. DESCRIPTION OF PROCEDURE: The patient was taken to the operating room. A ring block of the finger was achieved with 50:50 mixture of lidocaine and Marcaine, and the patient was sedated by the anesthesiologist. After ensuring the patient was pain-free, a volar flap viable skin was marked out and incised. Then, the necrotic tissue of the finger which included the nail and nail bed extending proximally to the crease of the DIP joint was excised. The underlying distal phalanx was also necrotic, and using a rongeur, the bone was shortened back to the point with viability was not in question. Meticulous hemostasis was then obtained, and the volar skin flap rotated to allow primary closure of the defect. The wound was then dressed in the usual manner, the hand splinted, and the patient was transferred to the recovery room. Sascha Miller MD MTDJulio
--- NOTE | 2018-07-23 09:04 | PQF ---
PROVIDER RESPONSE TEXT: Hypokalemia: --K+ 3.3-low. Possibly due to poor PO intake and side effects of medications: Lasix and Losartan. --K Cl supplemeted. REVIEWER QUERY TEXT: Medication Correlation for Diagnosis Your help is needed in capturing diagnoses for the corresponding medications ordered. Please clarify in the documentation diagnoses for the following medication(s). Medications: Potassium K 3.3 on admission The patient's Clinical Indicators include: K 3.3 on admission Medications: Potassium Query created by: Cinda Genao on 07/17/2018 6:30 AM Electronically signed by: Mitchel Bach 07/23/2018 9:01 AM
--- NOTE | 2018-07-23 09:04 | PQF ---
PROVIDER RESPONSE TEXT: Hypokalemia --K+ 3.3 at presentation --Likely due to poor oral intake and as side effect of medications: Furosemi de and Losartan. (Pt needs these meds as her Hx of severe systolic dysfunction-heart failure) --KCl s uplemented. REVIEWER QUERY TEXT: Medication Correlation for Diagnosis Your help is needed in capturing diagnoses for the corresponding medications ordered. Please clarify in the documentation diagnoses for the following medication(s). Medications: Potassium Chloride K level on admission 3.3--> 4.4 The patient's Clinical Indicators include: K level on admission 3.3--> 4.4 Rx: KCL supplement Query created by: Cinda Genao on 07/16/2018 9:52 AM Electronically signed by: Mitchel Bach 07/23/2018 9:01 AM
== END 2018-07-18 11:53 | disposition home or self-care (01) | DRG 256 ==
LOC: H.ER 14:53 → H.ERHOLD 16:25 → H.MEDSURG1 18:55 → H.TEL 07-17 11:50
PROVIDERS: ADMIT Student in an Organized Health Care Education/Training Program; ATTEND Student in an Organized Health Care Education/Training Program
PROC: 0X6S0Z3 Detachment at Right Ring Finger, Low, Open Approach (ICD-10-PCS; principal; 2018-07-17 07:45)
DX: I73.9 Peripheral vascular disease, unspecified (principal); L02.511 Cutaneous abscess of right hand; I50.22 Chronic systolic (congestive) heart failure; I42.0 Dilated cardiomyopathy; R64 Cachexia; Z68.1 Body mass index [BMI] 19.9 or less, adult; N13.2 Hydronephrosis with renal and ureteral calculous obstruction; I11.0 Hypertensive heart disease with heart failure; E78.2 Mixed hyperlipidemia; Z79.82 Long term (current) use of aspirin; Z87.891 Personal history of nicotine dependence; M19.042 Primary osteoarthritis, left hand; M19.041 Primary osteoarthritis, right hand; I25.5 Ischemic cardiomyopathy; L03.011 Cellulitis of right finger; F32.9 Major depressive disorder, single episode, unspecified; F41.9 Anxiety disorder, unspecified; I25.2 Old myocardial infarction; I25.10 Atherosclerotic heart disease of native coronary artery without angina pectoris; I95.9 Hypotension, unspecified; E87.6 Hypokalemia; T50.1X5A Adverse effect of loop [high-ceiling] diuretics, initial encounter; T46.5X5A Adverse effect of other antihypertensive drugs, initial encounter

== ENCOUNTER 2018-08-04 23:40 | Emergency (ER) | payer MEDICARE ==
[2018-08-04 23:41] VITALS: BMI 18.1
[2018-08-04 23:56] VITALS: BP 90/56; PULSE 76; RESP 17; TEMP 98; O2SAT 98
[2018-08-05] MEDS ORDERED: Oxycodone/Acetaminophen 5/325 mg Tab PO STA (00:10)
--- NOTE | 2018-08-05 00:21 | ED PDOC ---
HPI: Wound Care - HPI Time Seen by Provider: 08/04/18 23:58 Chief Complaint (Nursing): Suture/Staple Removal Chief Complaint (Provider): Wound Check History Per: Patient Exam Limitations: no limitations Current Symptoms Are (Timing): Still Present Location Of Injury: Right: Hand (4th finger) Additional Complaint(s): 68 year old female with a history of CHF, CAD and arthritis presents to the ED for a wound check. The patient's 4th digit was amputated in early July and she has since completed a full course of antibiotics. Because of this, she has become concerned for possible reinfection. She is requesting additional antibiotics and a narcotic refill. Offers no other complaints. PMD: Dr. Fortunato Boateng Past Medical History Reviewed: Historical Data, Nursing Documentation, Vital Signs Vital Signs: Last Vital Signs Temp 98.0 F 08/04/18 23:50 Pulse 76 08/04/18 23:50 Resp 17 08/04/18 23:50 BP 90/56 L 08/04/18 23:50 Pulse Ox 98 08/04/18 23:50 - Medical History PMH: Arthritis, Asthma, CAD, CHF, Depression, HTN, Hypercholesterolemia, Pneumonia Denies: Chronic Kidney Disease - Surgical History Other surgeries: right fourth digit amputation - Family History Family History: States: Unknown Family Hx - Home Medications Home Medications: Ambulatory Orders Medication Instructions Recorded Atorvastatin Calcium [Lipitor] 20 mg PO DAILY 10/14/14 Alprazolam [Xanax] 0.5 mg PO Q12 PRN 07/14/18 Multivitamin [Multi-Vitamin Daily] 1 tab PO DAILY 07/14/18 Sertraline [Zoloft] 50 mg PO HS 07/14/18 Aspirin [Aspirin Chewable] 81 mg PO DAILY #30 chew 07/18/18 Atorvastatin [Lipitor] 20 mg PO DAILY #30 tab 07/18/18 Furosemide [Lasix] 20 mg PO DAILY #30 tab 07/18/18 Losartan [Cozaar] 50 mg PO DAILY #30 tab 07/18/18 Metoprolol Succinate XL [Toprol XL] 25 mg PO DAILY #30 tab 07/18/18 Sulfamethoxazole/Trimethoprim 1 tab PO Q12 #28 tab 07/18/18 [Bactrim DS 800 mg-160 mg] oxyCODONE/Acetaminophen [Percocet 1 ea PO Q4 #30 tab 07/18/18 5/325 mg Tab] Naproxen [Naprosyn] 500 mg PO BID #30 tablet 08/05/18 - Allergies Allergies/Adverse Reactions: Allergies Allergy/AdvReac Type Severity Reaction Status Date / Time No Known Allergies Allergy Verified 07/14/18 15:01 Review of Systems ROS Statement: Except As Marked, All Systems Reviewed And Found Negative Musculoskeletal: Positive for: Other (right fourth digit amputation; sutures in place) Physical Exam - Reviewed Nursing Documentation Reviewed: Yes - Physical Exam Appears: Positive for: No Acute Distress Head Exam: Positive for: ATRAUMATIC, NORMAL INSPECTION, NORMOCEPHALIC Skin: Positive for: Normal Color, Warm, Dry Eye Exam: Positive for: EOMI, Normal appearance, PERRL Extremity: Positive for: Other (right fourth finger with intact sutures; sensation intact. Healing hematoma under skin without necrosis or erythema). Negative for: Tenderness Neurologic/Psych: Positive for: Alert, Oriented (x 3). Negative for: Motor/Sensory Deficits - ECG O2 Sat by Pulse Oximetry: 98 (RA) Pulse Ox Interpretation: Normal Medical Decision Making Medical Decision Makin:10 A&P: Advised patient to follow up with surgeon before suture removal. Given NSAID for pain relief 00:20 Patient requires no additional treatment in the ED and is stable for discharge. Follow up with surgeon. Scribe Attestation: Documented by Shanique Lauern acting as a scribe for Cecilio Hernandez MD Provider Scribe Attestation: All medical record entries made by the Scribe were at my direction and personally dictated by me. I have reviewed the chart and agree that the record accurately reflects my personal performance of the history, physical exam, medical decision making, and the department course for this patient. I have also personally directed, reviewed, and agree with the discharge instructions and disposition. Disposition - Clinical Impression Clinical Impression: Visit for wound check - Patient ED Disposition Is Patient to be Admitted: No - Disposition Referrals: Fortunato Boateng MD [Family Provider] - Disposition: Routine/Home Disposition Time: 00:20 Condition: STABLE Prescriptions: Naproxen [Naprosyn] 500 mg PO BID #30 tablet Instructions: Wound Care (DC) Forms: [employer] (Georgian)
== END 2018-08-05 00:30 | disposition home or self-care (01) ==
LOC: H.ER 23:40
DX: Z48.01 Encounter for change or removal of surgical wound dressing (principal)

== ENCOUNTER 2018-10-31 16:49 | Emergency (ER) | payer MEDICARE ==
[2018-10-31 16:50] VITALS: BMI 18.1
--- NOTE | 2018-10-31 18:28 | ED PDOC ---
Upper Extremity Pain/Injury Chief Complaint (Provider): Right 4th digit drainage History Per: Patient History/Exam Limitations: no limitations Additional Complaint(s): 68 y/o F with HTN, HL, CAD, CHF (EF 15 - 20%) in 2017 and Right 4th digit amputation in 07/2017 who presents with pus drainage and redness from Right 4th digit for the past 2 weeks. Denies fever or chills. States that finger appears swollen. She has been taking Percocet for pain, last dose about 9am this morning. <Mariana Owen - Last Filed: 10/31/18 20:27> <Rocio Bowers - Last Filed: 10/31/18 20:41> Time Seen by Provider: 10/31/18 17:47 Chief Complaint (Nursing): Finger,Hand,&Wrist Past Medical History Reviewed: Historical Data, Nursing Documentation, Vital Signs Vital Signs: Last Vital Signs Temp 98.0 F 10/31/18 16:58 Pulse 75 10/31/18 16:58 Resp 16 10/31/18 16:58 BP 96/52 L 10/31/18 16:58 Pulse Ox 98 10/31/18 16:58 Primary Care Provider: Doctor,Conversion - Medical History PMH: Arthritis, Asthma, CAD, CHF, Depression, HTN, Hypercholesterolemia, Pneumonia Denies: Chronic Kidney Disease - Family History Family History: States: Unknown Family Hx <Mariana Owen - Last Filed: 10/31/18 20:27> Vital Signs: Last Vital Signs Temp 98.0 F 10/31/18 16:58 Pulse 75 10/31/18 16:58 Resp 16 10/31/18 16:58 BP 96/52 L 10/31/18 16:58 Pulse Ox 98 10/31/18 20:32 <Rocio Bowers - Last Filed: 10/31/18 20:41> - Home Medications Home Medications: Ambulatory Orders Medication Instructions Recorded Atorvastatin Calcium [Lipitor] 20 mg PO DAILY 10/14/14 Alprazolam [Xanax] 0.5 mg PO Q12 PRN 07/14/18 Multivitamin [Multi-Vitamin Daily] 1 tab PO DAILY 07/14/18 Sertraline [Zoloft] 50 mg PO HS 07/14/18 Aspirin [Aspirin Chewable] 81 mg PO DAILY #30 chew 07/18/18 Atorvastatin [Lipitor] 20 mg PO DAILY #30 tab 07/18/18 Furosemide [Lasix] 20 mg PO DAILY #30 tab 07/18/18 Losartan [Cozaar] 50 mg PO DAILY #30 tab 07/18/18 Metoprolol Succinate XL [Toprol XL] 25 mg PO DAILY #30 tab 07/18/18 Sulfamethoxazole/Trimethoprim 1 tab PO Q12 #28 tab 07/18/18 [Bactrim DS 800 mg-160 mg] oxyCODONE/Acetaminophen [Percocet 1 ea PO Q4 #30 tab 07/18/18 5/325 mg Tab] Naproxen [Naprosyn] 500 mg PO BID #30 tablet 08/05/18 Amoxicillin/Clavulanate [Augmentin 1 tab PO BID #14 tab 10/31/18 875 MG-125 MG] - Allergies Allergies/Adverse Reactions: Allergies Allergy/AdvReac Type Severity Reaction Status Date / Time No Known Allergies Allergy Verified 10/31/18 17:07 Review of Systems Constitutional: Negative for: Fever, Chills Musculoskeletal: Positive for: Other (Right 4th digit pain) <Mariana Owen - Last Filed: 10/31/18 20:27> Physical Exam - Reviewed Nursing Documentation Reviewed: Yes Vital Signs Reviewed: Yes - Physical Exam Appears: Positive for: Non-toxic Extremity: Positive for: Other (Right 4th digit with necrotic distal tip with + purulent drainage. Distal to this is partially removed necrotic tip with [address] Right 4th digit + erythema to base of finger and swelling. + tenderness on palpatiaon of medial distal digit. ). Negative for: Normal ROM (unable to flex or extend at PIP. + flexion and extension at MCP. ) Neurological/Psych: Positive for: Awake, Alert, Oriented <Mariana Owen - Last Filed: 10/31/18 20:27> - Laboratory Results Result Diagrams: 10/31/18 18:35 10/31/18 18:35 - ECG O2 Sat by Pulse Oximetry: 98 <Mariana Owen - Last Filed: 10/31/18 20:27> - Laboratory Results Result Diagrams: 10/31/18 18:35 10/31/18 18:35 <Rocio Bowers - Last Filed: 10/31/18 20:41> Medical Decision Making Medical Decision Making: CBC, CMP, blood culture wound culture surgery consult 18:45: case discussed with Dr. Salmeron covering for Dr. Hammonds who agreed that patient should have surgery resident consult. 19:00: residential door installer contacted and case discussed. Labs wnl, will come in to see patient in about 1 hr as traveling from [facility] and about to perform a procedure. 19:30: Percocet 1 tab PO x 1 ordered. 20:25: pt endorsed to SAIRA Arellano pending surgery consult and disposition. <Mariana Owen - Last Filed: 10/31/18 20:27> Medical Decision Making: Evaluated by Dr Paige sr vice president who d/w Dr Perea. Pt to be started on antibiotics and followup with Dr Hammonds early next week. <Rocio Bowers - Last Filed: 10/31/18 20:41> Disposition - Patient ED Disposition Is Patient to be Admitted: Transfer of Care (SAIRA Arellano) - Disposition Disposition: Transfer of Care (SAIRA Arellano) Disposition Time: 20:25 <Mariana Owen - Last Filed: 10/31/18 20:27> - Disposition Disposition: Discharged to Home Care <Rocio Bowers - Last Filed: 10/31/18 20:41> - Clinical Impression Clinical Impression: Finger infection, Finger necrosis - Disposition Condition: STABLE Additional Instructions: FOLLOWUP WITH DR HAMMONDS EARLY NEXT WEEK TAKE ANTIBIOTICS PRESCRIBED WARM SOAPY SOAKS FOR 20 MINUTES AT LEAST 2 TIMES A DAY Prescriptions: Amoxicillin/Clavulanate [Augmentin 875 MG-125 MG] 1 tab PO BID #14 tab Instructions: Wound Infection Forms: [employer] (Filipino) - PA / COMPLEX CARE NURSE PRACTITIONER / Resident Statement MD/DO has reviewed & agrees with the documentation as recorded. <Rocio Bowers - Last Filed: 10/31/18 20:41>
[2018-10-31 18:41] LABS: BASO # 0.1 K/uL (0.0-0.2); EOS # 0.4 K/uL (0.0-0.7); EOS % 4.4 % (0.0-4.0); HEMOGLOBIN 11.9 g/dL (12.0-16.0); LYMPH # 1.7 K/uL (1.0-4.3); LYMPH % 20.7 % (20.0-40.0); MEAN CELL VOLUME 96.2 fl (81.0-99.0); MEAN CORPUSCULAR HGB CONC 33.2 g/dL (33.0-37.0); MEAN PLATELET VOLUME 7.9 fl (7.2-11.7); MONO # 0.8 K/uL (0.0-0.8); MONO % 9.3 % (0.0-10.0); NEUT # 5.4 K/uL (1.8-7.0); NEUT % 64.6 % (50.0-75.0); RBC 3.71 Mil/uL (3.80-5.20); RED CELL DISTRIBUTION WIDTH 13.6 % (11.5-14.5); WHITE BLOOD COUNT 8.4 K/uL (4.8-10.8)
[2018-10-31 18:59] LABS: BLOOD UREA NITROGEN 16 mg/dl (7-17); CALCIUM 9.2 mg/dL (8.4-10.2); GFR NON-AFRICAN AMERICAN > 60
[2018-10-31] MEDS ORDERED: Oxycodone/Acetaminophen 5/325 mg Tab PO ONE (19:43)
[2018-10-31] MEDS ORDERED: Oxycodone/Acetaminophen 5/325 mg Tab ONE (19:50)
[2018-10-31 20:49] VITALS: BP 114/69; PULSE 62; RESP 18; TEMP 98; O2SAT 99
--- NOTE | 2018-10-31 22:11 | CP.PCM.CON ---
<Clarence Paige - Last Filed: 10/31/18 22:00> History of Present Illness - History of Present Illness History of Present Illness: Surgery Consult note. Dr. Salmeron (covering for Dr. Noriega) 68yo F with PMHx of CHF, HLD, HTN who has been treated with right Ring finger partial amputation for necrosis of the right ring finger by Dr. Miller on 07/16/18. Patient has since been following up with Dr. Noriega. Today, she comes into the ED for evaluation. She states that the distal tip of the amputation has become necrotic. She denies any pain. Does report some drainage. Denies any fevers or chills. Denies any other complaints. PMHx: CHF, HLD, HTN PSHx: Partial Amputation of right ring finger (07/16/18) Social Hx: States that she stopped smoking 15 years ago; Denies illicit drugs; Denies ETOH use Family Hx: Non-contributory NKDA Review of Systems - Review of Systems All systems: reviewed and no additional remarkable complaints except - Constitutional Constitutional: absent: Chills, Fever - EENT Eyes: absent: Change in Vision Nose/Mouth/Throat: absent: Nasal Discharge - Cardiovascular Cardiovascular: absent: Chest Pain, Dyspnea - Respiratory Respiratory: absent: Cough, Dyspnea - Gastrointestinal Gastrointestinal: absent: Abdominal Pain, Nausea, Vomiting - Genitourinary Genitourinary: absent: Difficulty Urinating, Dysuria Past Patient History - Past Medical History & Family History Past Medical History?: Yes Past Family History: Reviewed and not pertinent - Past Social History Smoking Status: Former Smoker - CARDIAC Hx Congestive Heart Failure: Yes Hx Hypercholesterolemia: Yes Hx Hypertension: Yes - PULMONARY Hx Asthma: Yes Hx Pneumonia: Yes - NEUROLOGICAL Hx Neurological Disorder: No - HEENT Hx HEENT Problems: No - RENAL Hx Chronic Kidney Disease: No - ENDOCRINE/METABOLIC Hx Endocrine Disorders: No - HEMATOLOGICAL/ONCOLOGICAL Hx Blood Disorders: No - INTEGUMENTARY Hx Cellulitis: Yes - MUSCULOSKELETAL/RHEUMATOLOGICAL Hx Arthritis: Yes - GASTROINTESTINAL Hx Gastrointestinal Disorders: No - GENITOURINARY/GYNECOLOGICAL Hx Genitourinary Disorders: No - PSYCHIATRIC Hx Depression: Yes - SURGICAL HISTORY Hx Surgeries: No - ANESTHESIA Hx Anesthesia: Yes Meds Home Medications: Home Medication List Medication Instructions Recorded Confirmed Type Amoxicillin/Clavulanate [Augmentin 1 tab PO BID #14 tab 10/31/18 Rx 875 MG-125 MG] Allergies/Adverse Reactions: Allergies Allergy/AdvReac Type Severity Reaction Status Date / Time No Known Allergies Allergy Verified 10/31/18 17:07 Physical Exam - Constitutional Appears: Well, Non-toxic, No Acute Distress - Head Exam Head Exam: ATRAUMATIC, NORMAL INSPECTION, NORMOCEPHALIC - Eye Exam Eye Exam: EOMI, Normal appearance. absent: Scleral icterus - ENT Exam ENT Exam: Mucous Membranes Moist - Respiratory Exam Respiratory Exam: NORMAL BREATHING PATTERN. absent: Accessory Muscle Use, Respiratory Distress - Cardiovascular Exam Cardiovascular Exam: absent: JVD - GI/Abdominal Exam GI & Abdominal Exam: Soft. absent: Diminished Bowel Sounds, Distended, Tenderness - Extremities Exam Additional comments: Right ring finger with distal aspect with necrotic wound which has almost auto- amputated. Mild erythema at the right ring finger, no tracking noted proximally to the MCP joint. Full active and passive range of motion. No tenderness noted. - Neurological Exam Neurological exam: Alert, Oriented x3 - Psychiatric Exam Psychiatric exam: Normal Affect, Normal Mood Results - Vital Signs Recent Vital Signs: Last Vital Signs Temp 98 F 10/31/18 20:48 Pulse 62 10/31/18 20:48 Resp 18 10/31/18 20:48 BP 114/69 10/31/18 20:48 Pulse Ox 99 10/31/18 20:48 - Labs Result Diagrams: 10/31/18 18:35 10/31/18 18:35 Labs: Laboratory Results - last 24 hr 10/31/18 10/31/18 18:35 18:35 WBC 8.4 RBC 3.71 L Hgb 11.9 L Hct 35.7 MCV 96.2 MCH 32.0 H MCHC 33.2 RDW 13.6 Plt Count 274 MPV 7.9 Neut % (Auto) 64.6 Lymph % (Auto) 20.7 [place] % (Auto) 9.3 Eos % (Auto) 4.4 H Baso % (Auto) 1.0 Neut # (Auto) 5.4 Lymph # (Auto) 1.7 [place] # (Auto) 0.8 Eos # (Auto) 0.4 Baso # (Auto) 0.1 Sodium 136 Potassium 4.0 Chloride 100 Carbon Dioxide 28 Anion Gap 12 BUN 16 Creatinine 0.9 Est GFR ( Amer) > 60 Est GFR (Non-Af Amer) > 60 Random Glucose 98 Calcium 9.2 Assessment & Plan - Assessment and Plan (Free Text) Assessment: 68yo F with hx of right ring finger partial amputation and non-healing wound Plan: - No immediate surgical intervention warranted - PO Antibiotics - Warm water and soap soaks three times per day for 20 mins - Follow up with Dr. Noriega in office. Call for appointment - Has the option and may also follow up with Dr. Miller. (Patient preference; Patient states that she would rather follow up with Dr. Noriega) Further recs as per Dr. Salmeron (Covering for Dr. Noriega) Clarence Paige PGY2 surgery <Manuel Sam - Last Filed: 11/02/18 12:25> Results - Vital Signs Recent Vital Signs: Last Vital Signs Temp 98 F 10/31/18 20:48 Pulse 62 10/31/18 20:48 Resp 18 10/31/18 20:48 BP 114/69 10/31/18 20:48 Pulse Ox 99 10/31/18 20:48 - Labs Result Diagrams: 10/31/18 18:35 10/31/18 18:35 Assessment & Plan - Assessment and Plan (Free Text) Plan: All medical record entries made by the resident were at my direction. I have reviewed the chart and agree that the record accurately reflects my personal performance of the history, physical exam, and medical decision making.
== END 2018-10-31 20:48 | disposition home or self-care (01) ==
LOC: H.ER 16:49
DX: L08.89 Other specified local infections of the skin and subcutaneous tissue (principal); I96 Gangrene, not elsewhere classified; Z89.021 Acquired absence of right finger(s); Z98.890 Other specified postprocedural states; I11.0 Hypertensive heart disease with heart failure; J45.909 Unspecified asthma, uncomplicated; Z87.891 Personal history of nicotine dependence; E78.00 Pure hypercholesterolemia, unspecified; Z86.59 Personal history of other mental and behavioral disorders